=== PATIENT | male | born 1960 | race Caucasian/White ===

== ENCOUNTER 2019-08-08 12:40 | Emergency (ER) | payer BC, SELFPAY ==
--- NOTE | 2019-08-08 12:44 | ED.GENADULT ---
HPI - General Adult General Chief complaint: Skin/Abscess/Foreign Body Stated complaint: pos sinus infection Time Seen by Provider: 08/08/19 12:53 Source: patient Mode of arrival: ambulatory Limitations: no limitations History of Present Illness HPI narrative: 58-year-old male patient presents to the [facility] with complaints of skin infection to the face. Patient states that he had a lump to the right side of his face on the cheek area for the past 2 weeks. Patient states it was very tender to the touch. Patient states that he applied some pressure to it yesterday and states he felt like it popped and noticed that he had some draining to the back the throat is very foul tasting type of drainage. Patient also states that he has had cold symptoms that started yesterday including sneezing, runny nose, stuffy nose but denies any fevers that he is aware of. Patient states that he did get a flu shot this year. Patient denies take anything for his symptoms so far. Related Data Home Medications Medication Instructions Recorded Confirmed Tumeric 500 mg DAILY 05/09/19 08/08/19 alprazolam 0.5 mg PO DAILY PRN 05/09/19 08/08/19 aspirin [Aspirin Low Dose] 81 mg PO DAILY 05/09/19 08/08/19 atorvastatin 80 mg PO DAILY 05/09/19 08/08/19 cholestyramine-aspartame 4 g PO BID 05/09/19 08/08/19 [Cholestyramine Light] hyoscyamine sulfate [Levsin] 0.125 mg PO BID 05/09/19 08/08/19 icosapent ethyl [Vascepa] 2 g PO BID 05/09/19 08/08/19 ivabradine [Corlanor] 5 mg PO BID 05/09/19 08/08/19 metoprolol tartrate 50 mg PO HS 05/09/19 08/08/19 metoprolol tartrate 100 mg AC 05/09/19 08/08/19 km-hf-ZK-vit Z-wdpps-tmy-coQ10 1 cap PO DAILY 05/09/19 08/08/19 [Daily Multivitamin] nitroglycerin [Nitrostat] 0.4 mg SUBLINGUAL Q5M PRN 05/09/19 08/08/19 ranolazine [Ranexa] 1,000 mg PO Q12H 05/09/19 08/08/19 sacubitril-valsartan [Entresto] 1 tablet PO BID 05/09/19 08/08/19 spironolactone 50 mg PO DAILY 05/09/19 08/08/19 temazepam [Restoril] 15 mg PO HS 05/09/19 08/08/19 ticagrelor [Brilinta] 90 mg PO Q12H 05/09/19 08/08/19 vitamin D3-folic acid [Folvite-D] 1 tablet PO DAILY 05/09/19 05/09/19 Allergies Allergy/AdvReac Type Severity Reaction Status Date / Time No Known Allergies Allergy Unverified 06/14/19 09:04 Review of Systems Review of Systems: Narrative: CONSTITUTIONAL: Denies fever, chills, or sweats. EYES: Denies visual changes, redness, or discharge. ENT: Positive rhinorrhea, congestion, denies sore throat, or otalgia. CARDIOVASCULAR: Denies chest pain, palpitations, or edema. RESPIRATORY: Positive mild nonproductive cough, denies dyspnea. GASTROINTESTINAL: Denies abdominal pain, nausea, vomiting, or diarrhea. GENITOURINARY: Denies dysuria or hematuria. SKIN: Denies rash or itching. MUSCULOSKELETAL: Denies back pain, joint pain, or myalgia. NEUROLOGIC: Denies headache, numbness, or weakness. PSYCHIATRIC: Denies anxiety or depression. [facility] Past Medical History Medical History (Updated 08/08/19 @ 13:03 by ERICA Pool) Anxiety Arthritis Cardiac disorder Pacemaker/defibrillator placed Cardiomyopathy Carpal tunnel syndrome Cataracts, bilateral Chronic back pain Congestive heart failure EF 60% on 11/08/2018 COPD (chronic obstructive pulmonary disease) Coronary artery disease 3 stents Emphysema of lung GERD (gastroesophageal reflux disease) Hypercholesterolemia Hypertension Pneumonia 08/2017. Requiring intubation for 8 days Rectal polyp Respiratory abnormalities Benign nodule removed from right lung in 2012 Surgical History Surgical History (Updated 08/08/19 @ 12:50 by ERICA Pool) H/O cardiac catheterization History of orthopedic surgery Right knee ACL repair, 2 right knee scopes, and right rotator cuff repair Hx of tonsillectomy Family History Family History Father Family history of Parkinson's disease Mother Family history of chronic obstructive pulmo
[2019-08-08 12:51] VITALS: BP 148/81; PULSE 66; RESP 20; TEMP 36.2; O2SAT 100
== END 2019-08-08 13:20 | disposition home or self-care (01) ==
PROVIDERS: Emergency Provider Nurse Practitioner Family; PCP Family Medicine
DX: J01.00 Acute maxillary sinusitis, unspecified (principal); F41.9 Anxiety disorder, unspecified; M19.90 Unspecified osteoarthritis, unspecified site; Z95.810 Presence of automatic (implantable) cardiac defibrillator; H26.9 Unspecified cataract; I11.0 Hypertensive heart disease with heart failure; I50.9 Heart failure, unspecified; J44.9 Chronic obstructive pulmonary disease, unspecified; Z95.5 Presence of coronary angioplasty implant and graft; K21.9 Gastro-esophageal reflux disease without esophagitis; E78.00 Pure hypercholesterolemia, unspecified
CPT/HCPCS: 87804; 99212; G0463

== ENCOUNTER 2019-12-21 00:05 | Outpatient (CLI) | payer BC, SELFPAY ==
[2019-12-21 20:58] LABS: SARS-CoV-2 RNA PCR Negative
== END 2019-12-21 00:06 | disposition home or self-care (01) ==
LOC: ANHCOVIDDT 00:05
PROVIDERS: PCP Family Medicine; Visit Provider Orthopaedic Surgery
DX: Z01.812 Encounter for preprocedural laboratory examination (principal); Z11.59 Encounter for screening for other viral diseases
CPT/HCPCS: 87635; C9803; U0003

== ENCOUNTER 2019-12-24 00:52 | Day surgery (SDC) | payer BC, SELFPAY ==
[2019-12-13 08:43] VITALS: BMI 25.8
--- NOTE | 2019-12-24 06:08 | ECG_ITS ---
Measurements Intervals [place] Rate: 56 P: 39 ME: 188 QRS: 20 QRSD: 107 T: 1 QT: 447 QTc: 433 Interpretive Statements ATRIAL SENSE- ELECTRONIC VENTRICULAR PACEMAKER UNDERLYING SINUS BRADYCARDIA NO FURTHER INTERPRETATION IS POSSIBLE BORDERLINE ECG Electronically Signed On 12-24-2019 9:07:16 CDT by Danish Jacinto D.O.
--- NOTE | 2019-12-24 07:04 | WPDHPUPDATE1 ---
History and Physical Update Update Date/Time: 12/24/19 07:04 History and Physical has been reviewed, including an updated exam of the patient- see below. There are NO changes in the patient's condition. Risks, benefits, and alternatives have been discussed and questions answered. Patient agrees to proceed with procedure. Covid test negative. Intake Visit Reasons: Hand pain Disease Intervention Specialist Required: No Accompanied by: Self / Same As Patient Is patient in pain?: Yes Allergies/Adverse Reactions No Known Allergies Allergy (Verified 12/05/19 11:49) Do you need a note to return to daycare/school/sports/work: No Preferred pharmacy verified?: Yes Preferred laboratory: Other Smoking risk assessment performed?: Yes Smoking Status: Never smoker BMI Screening Performed?: Yes Body Mass Index: 25.8 HPI Hand/Wrist Pain Rt hand pain/numbness. Zoom video appointment completed Involved hand: right Involved wrist: right Dominant hand: right Onset: gradual Location of pain: palmar hand Character: throbbing, burning, numbing and tingling Associated symptoms: Reports swelling and weakness; Denies fever(s), erythema or warmth Exacerbated by: activities of daily living, writing, manipulative tasks, motion, lifting and prolonged activities Relieved by: rest Swelling: No History of occupational/recreational activity with repetitive movement: No History of prior hand/wrist injury: No Review of Systems Const Reports no additional complaints Eyes Reports loss of vision ENT Reports no additional complaints Card Reports no additional complaints Resp Reports no additional complaints GI Reports no additional complaints Musc Reports no additional complaints Skin/Breast Denies acne Neuro Reports no additional complaints Psych Reports no additional complaints Endo Reports no additional complaints Brandon/Lymph Reports no additional complaints Aller/Immun Reports no additional complaints Exam Exam Const Constitutional General: cooperative, healthy appearing, no acute distress, well developed and alert; No confusion Orientation/consciousness: No confusion HENMT Head: normal to inspection, normocephalic and atraumatic Eyes Conjunctivae: Yes conjunctivae normal Sclera: sclerae normal Neck Neck: Yes supple and No tender Chest Chest palpation & inspection: normal inspection of the chest Resp Effort & Inspection: normal respiratory effort and no audible wheezes Cardio Rate: Yes regular rate Rhythm: regular rhythm General Exam: Yes deferred Skin General skin exam: no rashes or lesions noted Neuro General: No confusion Motor exam (neuro): Yes Normal motor muscle tone present throughout Sensory Exam: Sensory deficit (Neuro) (decreased sensation to light touch thumb, index, middle and radial ring ashley) and Upper extremity sensory exam abnormal Deep tendon reflexes (DTR's): Right triceps reflex intensity grade: 2+, Left triceps reflex intensity grade: 2+, Rt Biceps (C5, C6): 2+, Left biceps reflex intensity grade: 2+, Right brachioradialis reflex intensity grade: 2+ and Left brachioradialis reflex intensity grade: 2+ Extrem General: Yes capillary refill normal Right upper extremity: normal to inspection, full ROM, normal capillary refill and wrist Left upper extremity: normal to inspection and wrist Right lower extremity: normal to inspection and hip/thigh Left lower extremity: hip/thigh and ankle (no calf tenderness) Psych Affect: Yes normal affect Assessment & Plan (1) Pain of hand: Code(s): M79.643 - Pain in unspecified hand (2) Pain in wrist: Code(s): M25.539 - Pain in unspecified wrist (3) Carpal tunnel syndrome of right wrist: Code(s): G56.01 - Carpal tunnel syndrome, right upper limb Category: Medical Plan - Benjamin Mendez MD: Evaluation for chief complaint continued bilateral wrist pain and hand numbness. History, physical exam and radiographs reviewed with the patient. previous nerve conduction study
[2019-12-24 07:45] VITALS: BP 126/77; PULSE 58; RESP 18; TEMP 36.2; O2SAT 100
[2019-12-24] MEDS: LACTATED RINGERS 1,000 ML 30 ML IV CONT (07:45)
[2019-12-24] MEDS: IBUPROFEN IV 800 MG/200 ML 800 MG/200 ML BAG 400 MG IVPB (07:45)
--- NOTE | 2019-12-24 07:58 | WPDANESEPPF ---
Anes - Initial Pre Proc Eval Procedure: Operation Date: 12/24/19 08:30 Proposed Procedures p Right Carpal Tunnel Release - Benjamin Mendez MD Date/Time: 12/24/19 07:58 Surgeon: Benjamin Mendez MD Pre Op Diagnosis: right carpal tunnel syndrome Patient Data Age: 59 Gender: M Height: 5 ft 10 in Weight: 81.65 kg Allergies Allergy/AdvReac Type Severity Reaction Status Date / Time No Known Allergies Allergy Verified 12/13/19 08:44 Home Medications Medication Instructions Recorded Confirmed Type Tumeric 500 mg DAILY 05/09/19 12/13/19 History alprazolam 0.5 mg PO DAILY PRN 05/09/19 12/13/19 History aspirin [Aspirin Low Dose] 81 mg PO DAILY 05/09/19 12/13/19 History atorvastatin 80 mg PO DAILY 05/09/19 12/13/19 History hyoscyamine sulfate [Levsin] 0.125 mg PO BID 05/09/19 12/13/19 History icosapent ethyl [Vascepa] 2 g PO BID 05/09/19 12/13/19 History ivabradine [Corlanor] 5 mg PO BID 05/09/19 12/13/19 History metoprolol tartrate 50 mg PO HS 05/09/19 12/13/19 History metoprolol tartrate 100 mg PO DAILY 05/09/19 12/13/19 History mf-mv-KV-vit J-seacw-xbm-coQ10 1 cap PO DAILY 05/09/19 12/13/19 History [Daily Multivitamin] nitroglycerin [Nitrostat] 0.4 mg SUBLINGUAL Q5M PRN 05/09/19 12/13/19 History ranolazine [Ranexa] 1,000 mg PO Q12H 05/09/19 12/13/19 History sacubitril-valsartan [Entresto] 1 tablet PO BID 05/09/19 12/13/19 History spironolactone 100 mg PO DAILY 05/09/19 12/13/19 History temazepam [Restoril] 15 mg PO HS PRN 05/09/19 12/13/19 History ticagrelor [Brilinta] 90 mg PO Q12H 05/09/19 12/13/19 History loperamide 2 mg capsule 2 mg PO Q2-4H PRN 08/22/19 12/13/19 History ascorbic acid (vitamin C) [Vitamin 500 mg PO BID 12/13/19 12/13/19 History C] folic acid 0.8 mg PO DAILY 12/13/19 12/13/19 History vit C,Z-Pz-yiesu-lutein-zeaxan 1 tablet PO BID 12/13/19 12/13/19 History [PreserVision AREDS-2] Patient hx anesthesia problems: none Family hx anesthesia problems: none PMFSH Social History Social History Smoking status: Never smoker Alcohol intake: current Anes - Eval Final PreProcedure Day of Procedure 12/24/19 07:58 Patient weight: overweight Heart: regular rate and rhythm Lungs: clear to auscultation Airway: Mallampati scale class II Neurological: alert and oriented Last oral intake: >/= 8 hours ASA classification: III Emergent: no Anesthetic plan: proceed Anesthesia type and monitoring: general (may do LMA) GIVS and standard monitoring Informed Consent: The patient's anesthetic plan and its attendant risks and benefits were discussed with the patient/family/POA. Questions were solicited and answers provided to the satisfaction of the patient/family/POA.
[2019-12-24] MEDS: ceFAZolin 2 GM/D5W 50 ML 2 GM/50 ML BAG IVPB (08:32)
--- NOTE | 2019-12-24 08:34 | PM.PROC ---
Procedure Note - Detailed Date of procedure: 12/24/19 Pre-op diagnosis: right carpal tunnel syndrome Post-op diagnosis: same Procedure performed: Right carpal tunnel release Description of procedure: Preoperative Diagnosis: Right Carpal Tunnel Syndrome (G56.02) Postoperative Diagnosis: Same Procedure: Right open carpal tunnel release (04225) Surgeon: Andrea Assist: Stripper And Opaquer Apprentice Anesthesia: MAC, local Complications: None EBL: Minimal Operative Indications: The patient has history, exam findings, and electrodiagnostic findings consistent with carpal tunnel syndrome. Conservative treatment with bracing/ splinting, activity modifications, medication, ergonomics, injections has failed. Symptoms are daily and affect ability to use hand. The patient desires operative treatment. Procedure: After informed consent was given, the operative extremity was marked in the preoperative holding area. Intravenous antibiotics were given. The patient was taken to the operating room and underwent conscious sedation by the anesthesia team. A time-out was performed confirming patient, procedure, and operative site. Local infiltrate at the carpal tunnel was done with 0.5% marcaine. Prepping and draping was done using chloraprep skin solution with usual surgical sterile technique. Anatomic landmarks marked on skin. Hand was exsanguinated and arm tourniquet inflated to 225mmHg. Incision was made with #15 blade knife in skin crease on volar palm. Hemostasis was achieved with electrocautery. Careful dissection was carried down to the transverse carpal ligament. Retractors were placed. Ligament overlying median nerve was incised in line with skin incision using [place] blade. Proximal and distal release was done with metzenbaum scissors under direct visualization. Mosquito clamp was placed deep to ligament to protect nerve during release. The nerve was inspected and noted to be intact with mild flattening. Tendons had good excursion. The tourniquet was then released and pressure held. Bleeding points were coagulated with bovie cautery. The wound was thoroughly irrigated with antibiotic solution. The skin was closed with 4-0 nylon interrupted suture. A sterile dressing was applied. Good capillary refill in the fingers and thumb was noted. The patient was transported to the recovery room in stable condition. All sponge, needle, instrument counts were correct at the end of the case. Anesthesia: MAC Surgeon: Benjamin Mendez MD Film Maker: 1st staff physical therapy assistant Estimated blood loss (mL): 5 Tourniquet time (min): 6 Drains: No Packing: No Pathology: none sent Complications: None Condition: stable Disposition: PACU
[2019-12-24] MEDS: LIDOCAINE HCL 2% LOCAL INJ 20 ML VIAL INFILTRATE (08:55)
[2019-12-24 09:06] VITALS: BP 110/67; PULSE 56; RESP 14; O2SAT 95
[2019-12-24 09:35] VITALS: BP 143/70; PULSE 57
[2019-12-24 10:05] VITALS: BP 160/82; PULSE 62
== END 2019-12-24 10:25 | disposition home or self-care (01) ==
PROVIDERS: PCP Family Medicine; Visit Provider Orthopaedic Surgery
PROC: (CPT 64721; principal; 2019-12-24 08:30)
DX: G56.01 Carpal tunnel syndrome, right upper limb (principal); I42.9 Cardiomyopathy, unspecified; I50.9 Heart failure, unspecified; I11.0 Hypertensive heart disease with heart failure; J44.9 Chronic obstructive pulmonary disease, unspecified; F41.9 Anxiety disorder, unspecified; K21.9 Gastro-esophageal reflux disease without esophagitis; E78.00 Pure hypercholesterolemia, unspecified; Z79.82 Long term (current) use of aspirin; Z95.5 Presence of coronary angioplasty implant and graft; Z95.810 Presence of automatic (implantable) cardiac defibrillator
CPT/HCPCS: 64721; 93005; J0690; J1100; J1741; J2250; J2405; J2704; J3010; J7120

== ENCOUNTER 2020-04-14 13:59 | Outpatient (CLI) | payer BC, SELFPAY ==
--- NOTE | ~2020-04-14 | US_ITS ---
EXAMINATION: US art doppler w press UE BI DATE: 04/14/2020 15:39 CDT INDICATION: Arterial insufficiency. Peripheral vascular disease. TECHNIQUE: Segmental pressures and plethysmographic and Doppler waveforms of the upper extremity clinton sahara were obtained. COMPARISON: None. FINDINGS: Right and left brachial artery pressures of 145 mm Hg and 143 mm Hg, respectively, are concordant (no rmal difference <= 30 mmHg). The right finger:brachial systolic pressure ratio is 0.86 (normal > 0.8) . Segmental pressure gradients are normal. The left finger:brachial systolic pressure ratio is 1.04. Segmental pressure gradients are normal. IMPRESSION: 1. Normal upper extremity Doppler study. Reviewed, dictated and finalized at location B.
== END 2020-04-14 14:00 | disposition home or self-care (01) ==
PROVIDERS: PCP Family Medicine; Visit Provider Orthopaedic Surgery
DX: I73.9 Peripheral vascular disease, unspecified (principal); I77.1 Stricture of artery
CPT/HCPCS: 93923

== ENCOUNTER 2020-05-21 06:42 | Outpatient (NON) | payer BC, SELFPAY ==
[2020-05-24 01:47] LABS: SARS-CoV-2 RNA PCR Negative
== END 2020-05-21 06:43 ==
LOC: ANHCOVIDDT 06:57
PROVIDERS: PCP Family Medicine; Visit Provider Family Medicine
DX: R68.89 Other general symptoms and signs (principal); Z20.828 Contact with and (suspected) exposure to other viral communicable diseases
CPT/HCPCS: 87635; C9803; U0003

== ENCOUNTER 2020-12-30 13:53 | Outpatient (CLI) | payer BC, SELFPAY ==
--- NOTE | ~2020-12-30 | US_ITS ---
US arterial ankle brachial ind INDICATION: Peripheral vascular disease. Foot pain. TECHNIQUE: Segmental pressures and plethysmographic and Doppler waveforms of the brachial and lower e xtremity arteries were obtained. COMPARISON: None. FINDINGS: Right and left brachial artery pressures of 183 mm Hg and 175 mm Hg, respectively, are concordant (no rmal difference <= 30 mmHg). The right ankle-brachial index (JACOB) is 1.01 (normal >= 0.9-1.0). The right great toe-brachial index (TBI) is 0.68 (normal >= 0.60). The left JACOB is 0.64. The left TBI is 0.43. IMPRESSION: 1. Diminished left ankle and toe brachial indices, consistent with mild-moderate peripheral arterial disease. Reviewed, dictated and finalized at location A. IMPRESSION: 1. Diminished left ankle and toe brachial indices, consistent with mild-moderat e peripheral arterial disease.
== END 2020-12-30 13:54 | disposition home or self-care (01) ==
LOC: ANHIMG 14:01
PROVIDERS: PCP Internal Medicine; Visit Provider Internal Medicine
DX: I73.9 Peripheral vascular disease, unspecified (principal)
CPT/HCPCS: 93922

== ENCOUNTER 2021-06-04 00:32 | Day surgery (SDC) | payer BC, SELFPAY ==
[2021-05-28 13:11] VITALS: BMI 25.9
--- NOTE | 2021-05-28 13:24 | PC.NURSE ---
Report to the Outpatient Waiting Room, entrance under the green pavilion located off [facility], at time _0630_ on date _06/04/21__. OR Time: _0830 AM___. - You and your visitor will be asked a series of questions to screen for COVID 19 for your protection. - A mask is required within the hospital. - Only one visitor is allowed at this time. Patient visitors will be guided where to wait when not with patient. Preoperative COVID Testing Requirements: No COVID Test needed if: (proof is required; if not received patient will have Rapid Test prior to entry) - Patient has received COVID Vaccine at least 14 days prior to procedure date or - Patient has positive COVID test result within last 90 days of surgery date. COVID Test needed if above criteria is not met If not COVID vaccinated a COVID test must be conducted within 72 hours of surgery and patient is asked to isolate self from time of testing until procedure. You will go to the [facility] for your COVID testing. The [facility] is located at the corner of [address] [facility]. You will only be called if COVID results are positive and your surgeon may reschedule your elective surgery date. Patients may have clear liquids (water, carbonated beverages, clear teas, apple juice) until 3 hours prior to surgery (0530 AM) with a maximum of 20 ounces. - No food from midnight until time of surgery - Infants may have breast milk until 4 hours before surgery, infant formula 6 hours prior to surgery. - Children will be allowed to drink immediately following surgery. If applicable, please bring a bottle or sippy cup to assist with drinking. Juice, water, soda, and popsicles are readily available. For infants on formula, please bring formula the day of surgery. Pacifiers are allowed. Take the following medications with a SIP of water the morning of surgery: __ASPIRIN & BRILINTA (PER DR. SNOW), ALPRAZOLAM, METOPROLOL, NITROGLYCERIN IF NEEDED (PER ANESTHESIA)____ Medications to discontinue per physician __ALL VITAMINS & SUPPLEMENTS 3 DAYS PRIOR TO SURGERY PER ANESTHESIA____ Date to take last dose__05/31/21 Please no make-up, nail georgian, hairspray, perfume, deodorant, or body powder the day of surgery. No jewelry (including any body piercings) or valuables the day of surgery, leave them at home. Please take a shower or bath the night before, or the morning of, surgery with an antibacterial soap. Wear comfortable, loose fitting clothing. Children are encouraged to wear pajamas. - Jewelry must be removed prior to entering the operating room. Rings and piercings that are not removed may be cut off. - The hospital will not accept responsibility for valuables. - Please leave all valuables, including medications, at home the day of surgery. If you are going home after surgery, a licensed hook up driver must drive you home. - NO public transportation without another adult. - We recommend that an adult stay with you for 24 hours following discharge. - We also recommend that you do not drive, make important decision, drink alcoholic beverages, or take any drugs that were not prescribed by your health care provider for at least 24 hours after your discharge time. For Pediatric surgeries, we recommend two adults accompany the child home (only one inside the building at this time). Follow any additional instructions given to you from your surgeon. Telephone instructions given to ____PT and asked if any additional questions and then verbalized understanding. Patient advised to call surgeon office or pre surgery nurse liaison [phone] if any additional questions.
--- NOTE | 2021-06-03 13:32 | WPDANESEPPF ---
Anes - Initial Pre Proc Eval Procedure: Operation Date: 06/04/21 08:30 Proposed Procedures p Left Open Carpal Tunnel Release - Dimitrios Viveros MD Date/Time: 06/03/21 13:32 Surgeon: Dimitrios Viveros MD Pre Op Diagnosis: left carpal tunnel syndrome Patient Data Age: 60 Gender: M Height: 1.78 m Weight: 81.81 kg Allergies Allergy/AdvReac Type Severity Reaction Status Date / Time No Known Allergies Allergy Verified 06/04/21 07:26 Home Medications Medication Instructions Recorded Confirmed Type Daily Multivitamin 1 cap PO DAILY 05/09/19 06/04/21 History Tumeric 500 mg DAILY 05/09/19 06/04/21 History PreserVision AREDS-2 1 tablet PO BID 12/13/19 06/04/21 History ascorbic acid (vitamin C) [Vitamin 500 mg PO BID 12/13/19 06/04/21 History C] folic acid 0.8 mg PO DAILY 12/13/19 06/04/21 History eplerenone 25 mg tablet 25 mg PO DAILY 06/18/20 06/04/21 History icosapent ethyl 1 gram capsule 2 g PO BID #180 cap 07/08/20 06/04/21 Rx ivabradine 5 mg tablet 5 mg PO BID #180 tablet 07/08/20 06/04/21 Rx metoprolol tartrate 50 mg tablet 50 mg PO HS #90 tablet 07/08/20 06/04/21 Rx nitroglycerin 0.4 mg sublingual 0.4 mg SUBLINGUAL Q5M PRN #20 07/08/20 05/28/21 Rx tablet tablet sacubitril 97 mg-valsartan 103 mg 1 tablet PO BID #180 tablet 07/08/20 06/04/21 Rx tablet ticagrelor 90 mg tablet 90 mg PO Q12H #90 tablet 07/08/20 06/04/21 Rx ranolazine 1,000 mg 1,000 mg PO Q12H #180 tablet 07/15/20 06/04/21 Rx tablet,extended release,12 hr aspirin 81 mg tablet,delayed 81 mg PO DAILY #90 tablet 07/29/20 06/04/21 Rx release coenzyme F38-bjgaasl E 100 mg-100 1 cap PO DAILY 12/25/20 06/04/21 History unit capsule hyoscyamine sulfate 0.125 mg tablet 0.125 mg PO BID #60 tablet 02/09/21 06/04/21 Rx alprazolam 0.5 mg tablet 0.5 mg PO DAILY PRN #90 tablet 05/18/21 06/04/21 Rx temazepam 15 mg capsule 15 mg PO HS PRN #90 cap 05/18/21 06/04/21 Rx atorvastatin 80 mg HS 05/28/21 06/04/21 History efinaconazole [Jublia] 1 applic TOPICAL DAILY 05/28/21 06/04/21 History metoprolol tartrate 100 mg PO QAM 05/28/21 06/04/21 History Patient hx anesthesia problems: none Family hx anesthesia problems: none Results Review: All pre-operative results and documents have been reviewed as part of the pre-operative evaluation. [facility] Past Medical History Medical History (Updated 02/09/21 @ 15:50 by Kenny Woods MD) Anxiety Arthritis Arthritis of hand, degenerative Cardiac disorder Pacemaker/defibrillator placed Cardiomyopathy Carpal tunnel syndrome Carpal tunnel syndrome of left wrist Carpal tunnel syndrome of right wrist Cataracts, bilateral Chronic back pain Congestive heart failure EF 60% on 11/08/2018 COPD (chronic obstructive pulmonary disease) Coronary artery disease 3 stents Emphysema of lung GERD (gastroesophageal reflux disease) Hypercholesterolemia Hypertension Pneumonia 08/2017. Requiring intubation for 8 days Rectal polyp Respiratory abnormalities Benign nodule removed from right lung in 2012 Trigger finger (acquired) Surgical History Surgical History H/O cardiac catheterization History of orthopedic surgery Right knee ACL repair, 2 right knee scopes, and right rotator cuff repair Hx of tonsillectomy Family History Family History Father Family history of Parkinson's disease Mother Family history of chronic obstructive pulmonary disease Family history of diabetes mellitus in first degree relative Family history of heart disease in male family member before age 55 Other Diabetes mellitus Family history of cardiovascular disease Hypertension Social History Social History (Updated 12/25/20 @ 13:55 by Zeinab Malave [facility]) Smoking packs per day: 0.5 Smoking cigarettes per day: 10.0 Years smoked: 46 Smoking pack-years: 23.00 Smoking status: Current every day smoker Additional s
[2021-06-04 06:54] VITALS: BP 131/72; PULSE 63; RESP 16; TEMP 36.2; O2SAT 100
--- NOTE | 2021-06-04 07:16 | WPDHPUPDATE1 ---
History and Physical Update Update Date/Time: 06/04/21 07:16 History and Physical has been reviewed, including an updated exam of the patient. There are NO changes in the patient's condition. Risks, benefits, and alternatives have been discussed and questions answered. Patient agrees to proceed with procedure.
--- NOTE | 2021-06-04 07:28 | WPDHPUPDATE1 ---
History and Physical Update Update Date/Time: 06/04/21 07:28 History and Physical has been reviewed, including an updated exam of the patient. There are NO changes in the patient's condition. Risks, benefits, and alternatives have been discussed and questions answered. Patient agrees to proceed with procedure. The patient has requested that we release his left middle trigger finger today. It was last injected in December. We will comply with his request.
[2021-06-04] MEDS: LACTATED RINGERS 1,000 ML 30 ML IV CONT (07:35)
[2021-06-04] MEDS: LIDO 1%/EPINEPHRINE 1:100,000 50 ML VIAL INFILTRATE (08:40)
[2021-06-04 08:56] VITALS: BP 101/62; PULSE 58; RESP 20
--- NOTE | 2021-06-04 09:02 | P.OP_ITS ---
Procedure Note - Detailed Date of Procedure 06/04/21 Pre-op Diagnosis Left carpal tunnel syndrome. Left middle trigger finger. Post-op Diagnosis same Procedure Performed Left open carpal tunnel release. Left middle trigger finger release Surgeon Dimitrios Viveros MD Cleaner Operator [facility]est[facility] Description of Procedure The left carpal tunnel and the left middle A1 marco was marked in the holding area. The patient was taken to the operating room where he was placed supine on the operating table. A time-out was held and confirmed. The extremity was prepped and draped in usual fashion as he was given IV sedation. The 2 sites were marked again and locally infiltrated with 1% lidocaine with epinephrine. The tourniquet was inflated to 250 mmHg. The incision was made over the carpal canal. Dissection was carried bluntly through the subcutaneous tissue to the palmar aponeurosis. This and the transverse carpal retinaculum were incised opening the canal. Under 3 point retraction the ligament was divided distally and proximally to completely release it. There was no unusual anatomy noted. That wound was closed with interrupted 4-0 nylon suture. Attention was turned to the left middle trigger finger site a longitudinal incision was made at this location and dissection was carried bluntly to the flexor tendon sheath. The A1 marco was identified and lysed throughout its length. About 3 mm of the next adjacent marco was also incised. Patient was not responsive. The 2 tendons were pulled up out of the wound on her Ragnell retractor and there seemed to be no catching. That wound was closed with interrupted 4-0 nylon suture. The usual bandage was applied the tourniquet was released and he is discharge instructions in wound care and follow-up. Has a prescription for hydrocodone 5/325 7. Estimated Blood Loss 2 Drains No Packing No Pathology none sent Complications No immediate complications Condition stable Disposition same day
[2021-06-04 09:20] VITALS: BP 125/77; PULSE 58; RESP 20
[2021-06-04 09:50] VITALS: BP 147/93; PULSE 64; RESP 20
[2021-06-04 10:10] VITALS: BP 160/88; PULSE 63; RESP 20
== END 2021-06-04 10:20 | disposition home or self-care (01) ==
PROVIDERS: PCP Internal Medicine; Visit Provider Plastic Surgery
PROC: (CPT 64721; principal; 2021-06-04 08:30)
DX: G56.02 Carpal tunnel syndrome, left upper limb (principal); M65.332 Trigger finger, left middle finger; I42.9 Cardiomyopathy, unspecified; I11.0 Hypertensive heart disease with heart failure; I50.9 Heart failure, unspecified; I25.10 Atherosclerotic heart disease of native coronary artery without angina pectoris; E78.00 Pure hypercholesterolemia, unspecified; J44.9 Chronic obstructive pulmonary disease, unspecified; K21.9 Gastro-esophageal reflux disease without esophagitis; F41.9 Anxiety disorder, unspecified; H26.9 Unspecified cataract; Z95.5 Presence of coronary angioplasty implant and graft; F17.210 Nicotine dependence, cigarettes, uncomplicated; Z79.01 Long term (current) use of anticoagulants; Z79.82 Long term (current) use of aspirin; Z95.810 Presence of automatic (implantable) cardiac defibrillator
CPT/HCPCS: 64721; 26055; A9270; J2001; J2250; J2405; J2704; J3010; J7120

== ENCOUNTER 2021-09-23 09:18 | Outpatient (CLI) | payer BC, SELFPAY ==
--- NOTE | ~2021-09-23 | US_ITS ---
EXAMINATION: US carotid duplex BI DATE: 09/23/2021 10:03 INDICATION: Bilateral carotid bruits. TECHNIQUE: Grayscale, color Doppler, and pulsed Doppler images of the cervical carotid arteries were obtained. The degree of vessel stenosis is placed in one of the following categories: normal, <50%, 5 0-69%, >=70% but less than near-occlusion, near-occlusion, or total occlusion. Note that percent sten osis relative to normal distal artery lumen diameter is indirectly measured from velocity measurement s as described by Tj, et al. Radiology 2003; 229:340-346. COMPARISON: None. FINDINGS: RIGHT: The right common carotid artery (CCA) peak systolic velocity (PSV) is 94 cm/s. The right internal car otid artery (ICA) PSV is 83 cm/s. The right ICA end-diastolic velocity (EDV) is 23 cm/s. The right IC A/CCA PSV ratio is 0.9. Grayscale and color Doppler images yield an estimate of <50% diameter reducti on from plaque in the ICA. There is antegrade flow in the right vertebral artery. LEFT: The left CCA PSV is 146 cm/s. The left ICA PSV is 98 cm/s. The left ICA EDV is 19 cm/s. The left ICA/ CCA PSV ratio is 0.7. Grayscale and color Doppler images yield an estimate of <50% diameter reduction from plaque in the ICA. There is antegrade flow in the left vertebral artery. IMPRESSION: 1. <50% stenosis in the right internal carotid artery. 2. <50% stenosis in the left internal carotid artery. Reviewed, dictated and finalized at location A.
== END 2021-09-23 09:19 | disposition home or self-care (01) ==
LOC: ANHIMG 09:21
PROVIDERS: Visit Provider Internal Medicine Cardiovascular Disease
DX: R09.89 Other specified symptoms and signs involving the circulatory and respiratory systems (principal); I65.23 Occlusion and stenosis of bilateral carotid arteries
CPT/HCPCS: 93880

== ENCOUNTER 2021-12-16 09:44 | Outpatient (CLI) | payer MEDICARE, BC, SELFPAY ==
--- NOTE | ~2021-12-16 | US_ITS ---
EXAMINATION: US aorta [facility] DATE: 12/16/2021 10:12 INDICATION: Abdominal aortic aneurysm screening with risk factors of hypercholesterolemia, hypertensi on and smoking. TECHNIQUE: Grayscale, color Doppler, and pulsed Doppler images of the aorta and common iliac arteries were obtained. COMPARISON: None. FINDINGS: The proximal aorta measures 2.5 cm. The mid aorta measures 2.0 cm. The distal aorta measures 1.7 cm. The right common iliac artery measures 8 mm. The left common iliac artery measures 9 mm. IMPRESSION: 1. Normal caliber abdominal aorta. Reviewed, dictated and finalized at location B.
== END 2021-12-16 09:45 | disposition home or self-care (01) ==
PROVIDERS: PCP Family Medicine Sports Medicine; Visit Provider Internal Medicine Cardiovascular Disease
DX: Z13.6 Encounter for screening for cardiovascular disorders (principal); Z72.0 Tobacco use
CPT/HCPCS: 76706

== ENCOUNTER 2022-01-29 01:27 | Day surgery (SDC) | payer BC, MEDICARE, SELFPAY ==
[2022-01-28 15:28] VITALS: BMI 25.9
[2022-01-29] VITALS (15 sets, daily range): BP systolic 116–183; BP diastolic 71–95; PULSE 59–67; RESP 12–18; TEMP 36.6; O2SAT 97–100; BMI 25.2
--- NOTE | 2022-01-29 | ECHO_ITS ---
Patient Info Name: Jcarlos Michaud Age: 61 years : 1960 Gender: Male Ht: 70 in Wt: 180 lbs BSA: 2.02 m2 HR: 78 bpm BP: 160 / 81 mmHg Heart Rhythm: Sinus Rhythm Technical Quality: Excellent Exam Date: 01/29/2022 11:36 AM Exam Location: [facility] Exam Room: [facility] Patient Status: Outpatient Admit Date: 01/29/2022 Staff Ordering Physician: Doron Carlson MD Panel Raiser Operator: Tameka Samuel RDCS Attending Provider: Doron Carlson MD Referring Physician: Robyn BONNER; Exam Type: CA echo transesophageal Study Info Indications - AORTIC VALVE STENOSIS Complete two-dimensional, color flow and Doppler transesophageal study is performed. Summary 1. Left ventricular chamber dimension is normal. 2. Grossly normal left ventricular systolic function. 3. Left atrial chamber dimension is moderately enlarged. 4. Sclerotic aortic valve which is moderately stenotic. 5. Aortic valve area by planimetry approximately 1.2 cm2. Left Ventricle Left ventricular chamber dimension is normal. Grossly normal left ventricular systolic function. Right Ventricle Right ventricular chamber dimension is normal. Linear artifact in right ventricle suggestive of catheter(s), pacemaker lead(s), or ICD lead(s). Left Atria Left atrial chamber dimension is moderately enlarged. Right Atria Right atrial chamber dimension is mildly enlarged. Aortic Valve The aortic valve is trileaflet. There is severe aortic valve sclerosis. There is moderate aortic valve stenosis. There is no aortic valve regurgitation. Pulmonic Valve The pulmonic valve is not well visualized. Mitral Valve The mitral valve has normal leaflets. There is trace mitral valve regurgitation. Tricuspid Valve The tricuspid valve leaflets are normal. Pericardium/Pleural The pericardium appears normal. Inferior Vena Cava Not well visualized inferior vena cava with Empty collapse upon inspiration consistent with Empty right atrial pressure, Empty. Aorta The aortic root size at the sinus of Valsalva is normal. Aortic Valve Name Value Normal AV 2D/MM AV Area (Planimetry) 1.3 cm2 Report Signatures
--- NOTE | 2022-01-29 12:46 | SUR.OPER ---
dr matos at bedside discussing case with patient
--- NOTE | 2022-01-29 13:06 | WPDMODSED ---
Moderate Sedation Note-Pt Data Patient Data Diagnosis: Aortic valve stenosis Present Complaint: Exertional dyspnea Procedure to be performed/Plan: Transesophageal echo Allergies Allergy/AdvReac Type Severity Reaction Status Date / Time No Known Allergies Allergy Verified 01/29/22 10:44 Home Medications Medication Instructions Recorded Confirmed Type [id number] 200 mcg-vit K 100 1 cap PO DAILY 05/09/19 01/28/22 History mcg-lycop 500 [id number] capsule (Daily Multivitamin) folic acid 0.8 mg capsule 0.8 mg PO DAILY 12/13/19 01/28/22 History vit C 250 mg-vit E 90 mg-zinc 40 1 tablet PO BID 12/13/19 01/28/22 History mg-copper 1 md-njxawr-sccosc capsule (PreserVision AREDS-2) eplerenone 25 mg tablet 25 mg PO DAILY 06/18/20 01/28/22 History icosapent ethyl 1 gram capsule 2 g PO BID #180 caps 07/08/20 01/28/22 Rx (Vascepa) ivabradine 5 mg tablet (Corlanor) 5 mg PO BID #180 tabs 07/08/20 01/28/22 Rx metoprolol tartrate 50 mg tablet 50 mg PO HS #90 tabs 07/08/20 01/28/22 Rx sacubitril 97 mg-valsartan 103 mg 1 tablet PO BID #180 tabs 07/08/20 01/28/22 Rx tablet (Entresto) hyoscyamine sulfate 0.125 mg 0.125 mg PO BID #60 tabs 02/09/21 01/28/22 Rx tablet (Levsin) metoprolol tartrate 100 mg tablet 100 mg PO QAM 05/28/21 01/28/22 History temazepam 15 mg capsule (Restoril) 15 mg PO HS PRN Insomnia #90 caps 08/21/21 01/28/22 Rx aspirin 81 mg tablet,delayed 81 mg PO DAILY #90 tabs 08/24/21 01/28/22 Rx release (Mohit Low Dose Aspirin) atorvastatin 80 mg tablet 80 mg PO DAILY #90 tabs 08/24/21 01/28/22 Rx nitroglycerin 0.4 mg sublingual 0.4 mg sublingual Q5M PRN Chest 08/24/21 01/28/22 Rx tablet (Nitrostat) Pain #20 tabs ranolazine 1,000 mg 1,000 mg PO Q12H #180 tabs 08/26/21 01/28/22 Rx tablet,extended release,12 hr (Ranexa) alprazolam 0.5 mg tablet 0.25 mg PO DAILY PRN Anxiety 01/28/22 01/28/22 History coenzyme Q10 100 mg capsule 100 mg PO DAILY 01/28/22 01/28/22 History (CoQ-10) ticagrelor 60 mg tablet 60 mg PO Q12H 01/28/22 01/28/22 History turmeric root extract 500 mg 500 mg PO DAILY 01/28/22 01/28/22 History capsule Sedation/Anesthesia: No previous sedation/anesthesia problems (including family history). [facility] Past Medical History Medical History (Updated 07/15/21 @ 13:25 by Jose Reyes APRN) Anxiety Arthritis Arthritis of hand, degenerative Cardiac disorder Pacemaker/defibrillator placed Cardiomyopathy Carpal tunnel syndrome Carpal tunnel syndrome of left wrist Carpal tunnel syndrome of right wrist Cataracts, bilateral Chronic back pain Congestive heart failure EF 60% on 11/08/2018 COPD (chronic obstructive pulmonary disease) Coronary artery disease 3 stents Emphysema of lung GERD (gastroesophageal reflux disease) Hypercholesterolemia Hypertension Pneumonia 08/2017. Requiring intubation for 8 days Rectal polyp Respiratory abnormalities Benign nodule removed from right lung in 2012 Trigger finger (acquired) Surgical History Surgical History H/O cardiac catheterization History of orthopedic surgery Right knee ACL repair, 2 right knee scopes, and right rotator cuff repair Hx of tonsillectomy Family History Family History Father Family history of Parkinson's disease Mother Family history of chronic obstructive pulmonary disease Family history of diabetes mellitus in first degree relative Family history of heart disease in male family member before age 55 Other Diabetes mellitus Family history of cardiovascular disease Hypertension Social History Social History (Updated 12/25/20 @ 13:55 by Zeinab Malave [facility]) Smoking packs per day: 0.5 Smoking cigarettes per day: 10.0 Years smoked: 48 Smoking pack-years: 24.00 Smoking status: Current every day smoker Tobacco type: cigarettes Additional smoking assessment co
--- NOTE | 2022-01-29 13:08 | WPDCARDPROC ---
Cardiac Cath Procedure Note Date of procedure:: 01/29/22 Performing physician:: Doron Carlson MD Indication:: Evaluation of aortic valve disease Brief clinical history:: This is a 61-year-old patient with history of coronary artery disease as well as aortic stenosis. He is been found to have significant aortic stenosis by echo Doppler. Further evaluation of this with KASSANDRA has been recommended following office appointment. Procedure Procedure performed:: Transesophageal echocardiogram with planimetry of aortic valve area Sedation/Medication given:: Fentanyl 50 mg Versed 6 mg Case start time 12 50 p.m. Case end time 1:02 p.m. Sedation provided by Mechelle Narayanan RN, trained observer Estimated blood loss:: No blood loss Procedure note:: Patient was brought to the cardiac catheterization lab holding area in the postabsorptive state placed in the supine position. He received viscous lidocaine swish and swallow and then or pharyngeal benzocaine spray. Following this he was sedated with Versed and fentanyl as detailed above. The bite block was placed in position his dentures were removed. Esophageal ECHO was then carried out easily and without complication. Following this the KASSANDRA probe was withdrawn the patient is recovering from sedation procedure was uneventful and well tolerated Findings:: The left atrium is moderately dilated. The mitral valve leaflets are normal in appearance there is a trivial jet of mitral valve regurgitation identified. The left ventricle is mildly enlarged and there appears to be mild to moderate global hypocontractility identified with an ejection fraction of 40-45%. The aortic valve is a trileaflet structure that is the significantly calcified with fibrocalcific changes. The non coronary cusp exhibits relatively good excursion. The coronary cusps are significantly restricted. There is no detectable aortic valve regurgitation by color Doppler. Direct planimetry was done several times yielding an average valve area of approximately 1.2 cm2. Aortic root dimension is normal. The right-sided chambers are not enlarged the tricuspid valve looks normal. In the right heart chambers the defibrillator lead is seen to be unremarkable in appearance. The descending thoracic aorta is of normal caliber the aortic arch appears to be unremarkable. Conclusion:: Fibrocalcific aortic valve disease with aortic stenosis by planimetry appears to be moderate valve area approximately 1.2 cm2. The non coronary cusp exhibits relatively good excursion as such the aortic valve stenosis is not severe by planimetry Moderate left ventricular systolic dysfunction as mentioned above Doron Carlson MD [facility]
--- NOTE | 2022-01-29 13:09 | SUR.PHASEII ---
procedure completed. patient drowsy but able to follow commands. he was able to put in his own dentures. he is now resting with eyes closed. dr matos in department. no family here. will continue to monitor
--- NOTE | 2022-01-29 13:23 | SUR.PHASEII ---
spoke with and updated her on patient. plan to d/c patient at 1430. aware
--- NOTE | 2022-01-29 13:32 | SUR.PHASEII ---
able to check for patients recovery of gag reflex, he is able to tolerate water with out any difficulty
--- NOTE | 2022-01-29 14:15 | SUR.PHASEII ---
iv d/c tip intact. patient d/c instructions given. print out given. all questions and concerns addressed. patient is able to sit on side of bed to dress himself with out issues. patient ambulated to br with out issues.
== END 2022-01-29 14:32 | disposition home or self-care (01) ==
PROVIDERS: PCP Family Medicine Sports Medicine; Visit Provider Specialist
PROC: (CPT 93312; principal; 2022-01-29 11:30)
DX: I35.0 Nonrheumatic aortic (valve) stenosis (principal); I25.10 Atherosclerotic heart disease of native coronary artery without angina pectoris; M19.90 Unspecified osteoarthritis, unspecified site; I36.1 Nonrheumatic tricuspid (valve) insufficiency; I37.1 Nonrheumatic pulmonary valve insufficiency; R19.7 Diarrhea, unspecified; I10 Essential (primary) hypertension; E78.5 Hyperlipidemia, unspecified; F17.210 Nicotine dependence, cigarettes, uncomplicated; J44.9 Chronic obstructive pulmonary disease, unspecified; I25.2 Old myocardial infarction; Z79.82 Long term (current) use of aspirin
CPT/HCPCS: 93312; 93320; 93325; J2250; J2704; J3010; J7040

== ENCOUNTER 2022-11-04 18:29 | Emergency (ER) | payer BC, MEDICARE, SELFPAY ==
[2022-11-04 18:41] VITALS: BP 143/86; PULSE 69; RESP 18; TEMP 36.4; O2SAT 100
--- NOTE | 2022-11-04 18:58 | ED.SKABFB ---
HPI - Skin/Abscess/Foreign Bdy General Chief complaint: Skin/Abscess/Foreign Body Stated complaint: Rt Facial Swelling Time Seen by Provider: 11/04/22 18:50 Source: patient, family, RN notes reviewed and old records reviewed Mode of arrival: ambulatory Limitations: no limitations History of Present Illness HPI narrative: 62 year old male accompanied by with complaints of right sided facial swelling with some redness and warmth which started today. Patient reports that he has had sinus congestion and drainage and problems with his sinuses for a few months and has seen an ENT from [facility] Dr Wells. Patient reports that he has pain across the bridge of his nose to the right side of his face to his ear and into neck. Patient has noted swelling to area under right eye, cheek, and to jaw line.Patient denies any fevers chills or sweats,denies any dental pain, Patient has no open wounds or area of drainage noted on right cheek. MD complaint: other (swelling red ) Onset (ago): hour(s) (this morning noted) Severity scale (1-10): 5 Quality: other (pressure) Exacerbating factors: palpation Treatments prior to arrival: other (Tylenol) Related Data Home Medications Medication Instructions Recorded Confirmed [id number] 200 mcg-vit K 100 1 cap PO DAILY 05/09/19 11/04/22 mcg-lycop 500 lik-gqzazq-R10 capsule (Daily Multivitamin) folic acid 0.8 mg capsule 0.8 mg PO DAILY 12/13/19 11/04/22 eplerenone 25 mg tablet 25 mg PO DAILY 06/18/20 11/04/22 metoprolol tartrate 100 mg tablet 100 mg PO QAM 05/28/21 11/04/22 coenzyme Q10 100 mg capsule 100 mg PO DAILY 01/28/22 11/04/22 (CoQ-10) ticagrelor 60 mg tablet 60 mg PO Q12H 01/28/22 11/04/22 turmeric root extract 500 mg 500 mg PO DAILY 01/28/22 11/04/22 capsule ivabradine 5 mg tablet (Corlanor) 5 mg PO DAILY 11/04/22 11/04/22 ranolazine 1,000 mg 500 mg PO Q12H 11/04/22 11/04/22 tablet,extended release,12 hr Allergies Allergy/AdvReac Type Severity Reaction Status Date / Time No Known Allergies Allergy Verified 11/04/22 18:49 Review of Systems Review of Systems: CONSTITUTIONAL: Denies fever, chills, or sweats. EYES: Denies visual changes, redness, or discharge. ENT: Positive for rhinorrhea, congestion,no sore throat, or right otalgia.Positive for swelling, redness and pain to right cheek with warmth. CARDIOVASCULAR: Denies chest pain, palpitations, or edema. RESPIRATORY: Denies cough or dyspnea. GASTROINTESTINAL: Denies abdominal pain, nausea, vomiting, or diarrhea. GENITOURINARY: Denies dysuria or hematuria. SKIN: Denies rash or itching. MUSCULOSKELETAL: Denies back pain, joint pain, or myalgia. NEUROLOGIC: Denies headache, numbness, or weakness. PSYCHIATRIC: Denies anxiety or depression. All systems reviewed & are unremarkable except as noted in HPI and below PMFSH Past Medical History Medical History Anxiety Arthritis Arthritis of hand, degenerative Cardiac disorder Pacemaker/defibrillator placed Cardiomyopathy Carpal tunnel syndrome Carpal tunnel syndrome of left wrist Carpal tunnel syndrome of right wrist Cataracts, bilateral Chronic back pain Congestive heart failure EF 60% on 11/08/2018 COPD (chronic obstructive pulmonary disease) Coronary artery disease 3 stents Emphysema of lung GERD (gastroesophageal reflux disease) Hypercholesterolemia Hypertension Pneumonia 08/2017. Requiring intubation for 8 days Rectal polyp Respiratory abnormalities Benign nodule removed from right lung in 2012 Trigger finger (acquired) Surgical History Surgical History H/O cardiac catheterization History of orthopedic surgery Right knee ACL repair, 2 right knee scopes, and right rotator cuff repair Hx of tonsillectomy Family History Family History Father Family history of Parkinson's disease Mother Famil
== END 2022-11-04 19:20 | disposition home or self-care (01) ==
PROVIDERS: Emergency Provider Registered Nurse; PCP Family Medicine Sports Medicine
DX: J01.90 Acute sinusitis, unspecified (principal); L03.211 Cellulitis of face; F17.210 Nicotine dependence, cigarettes, uncomplicated; M19.90 Unspecified osteoarthritis, unspecified site; J44.9 Chronic obstructive pulmonary disease, unspecified; K21.9 Gastro-esophageal reflux disease without esophagitis; E78.00 Pure hypercholesterolemia, unspecified; Z95.810 Presence of automatic (implantable) cardiac defibrillator; I11.0 Hypertensive heart disease with heart failure; I50.9 Heart failure, unspecified; Z95.5 Presence of coronary angioplasty implant and graft
CPT/HCPCS: 99213; G0463

== ENCOUNTER 2023-04-06 10:16 | Inpatient (IN) | payer MEDICARE, BC, SELFPAY ==
[2023-04-05 13:00] VITALS: BMI 25.9
[2023-04-06] VITALS (9 sets, daily range): BP systolic 82–143; BP diastolic 54–78; PULSE 55–68; RESP 12–16; TEMP 36.3; O2SAT 98–100; BMI 25.7; BMI 27.5
[2023-04-06 07:33] LABS: Basophils Percent Auto 0.6 % (0.2-1.2); Eosinophils Absolute Auto 0.1 K/mm3 (0-0.3); Eosinophils Percent Auto 1.2 % (0-4.4); Hematocrit 31.4 % (42.0-52.0); Hemoglobin 11.1 g/dL (14.0-18.0); Immature Granulocyte Absolute 0.03 K/mm3 (0.00-0.031); Immature Granulocyte Percent A 0.4 % (0-0.5); Lymphocytes Absolute Auto 0.97 K/mm3 (0.9-3.2); Lymphocytes Percent Auto 14.2 % (18.3-44.2); Mean Corpuscular HGB Conc 35.4 g/dl (32-36); Mean Corpuscular Hemoglobin 35.5 pg (26-34); Mean Corpuscular Volume 100.3 fl (80-100); Mean Platelet Volume 8.3 fl (7.4-10.4); Monocytes Absolute Auto 0.8 K/mm3 (0.1-0.6); Monocytes Percent Auto 12.1 % (2.6-8.5); Neutrophils Absolute Auto 4.9 K/mm3 (1.3-6.7); Neutrophils Percent Auto 71.5 % (45.5-73.1); Platelet Count Result 131 k/mm3 (150-375); Red Blood Count 3.13 M/mm3 (4.6-6.20); Red Cell Distribution Width 12.6 % (11.5-14.5); White Blood Count 6.8 K/mm3 (4.5-10.0)
[2023-04-06 07:45] LABS: Anion Gap 11 mmol/L (8-16); Blood Urea Nitrogen 16 mg/dL (9-20); Calcium 8.8 mg/dL (8.4-10.2); Carbon Dioxide 25 mmol/L (22-30); Chloride 96 mmol/L (98-107); Estimated CRCL calculation 76 ml/min; Estimated Glomerular Filt Rate > 60; Glucose 98 mg/dL (65-110); Potassium 4.3 mmol/L (3.4-5.0); Sodium 132 mmol/L (137-145)
--- NOTE | 2023-04-06 08:58 | WPDHPUPDATE1 ---
History and Physical Update Update Date/Time: 04/06/23 08:58 History and Physical has been reviewed, including an updated exam of the patient. There are NO changes in the patient's condition. Risks, benefits, and alternatives have been discussed and questions answered. Patient agrees to proceed with procedure.
--- NOTE | 2023-04-06 08:58 | WPDMODSED ---
Moderate Sedation Note-Pt Data Patient Data Diagnosis: Severe aortic stenosis Present Complaint: Severe aortic stenosis Procedure to be performed/Plan: Right heart cath, coronary angiography, left heart cath Allergies Allergy/AdvReac Type Severity Reaction Status Date / Time No Known Allergies Allergy Verified 04/06/23 07:08 Home Medications Medication Instructions Recorded Confirmed Type [id number] 200 mcg-vit K 100 1 cap PO DAILY 05/09/19 04/05/23 History mcg-lycop 500 [id number]-[id number] capsule (Daily Multivitamin) folic acid 0.8 mg capsule 0.8 mg PO DAILY 12/13/19 04/05/23 History eplerenone 25 mg tablet 25 mg PO DAILY 06/18/20 04/05/23 History icosapent ethyl 1 gram capsule 2 g PO BID #180 caps 07/08/20 04/05/23 Rx (Vascepa) sacubitril 97 mg-valsartan 103 mg 1 tablet PO BID #180 tabs 07/08/20 04/05/23 Rx tablet (Entresto) metoprolol tartrate 100 mg tablet 100 mg PO QAM 05/28/21 04/05/23 History temazepam 15 mg capsule (Restoril) 15 mg PO HS PRN Insomnia #90 caps 08/21/21 04/05/23 Rx aspirin 81 mg tablet,delayed 81 mg PO DAILY #90 tabs 08/24/21 04/05/23 Rx release (Mohit Low Dose Aspirin) nitroglycerin 0.4 mg sublingual 0.4 mg sublingual Q5M PRN Chest 08/24/21 04/05/23 Rx tablet (Nitrostat) Pain #20 tabs coenzyme Q10 100 mg capsule 100 mg PO DAILY 01/28/22 04/05/23 History (CoQ-10) ticagrelor 60 mg tablet 60 mg PO Q12H 01/28/22 04/05/23 History turmeric root extract 500 mg 500 mg PO DAILY 01/28/22 04/05/23 History capsule atorvastatin 80 mg tablet 80 mg PO DAILY #90 tabs 05/17/22 04/05/23 Rx ivabradine 5 mg tablet (Corlanor) 5 mg PO DAILY 11/04/22 04/05/23 History ranolazine 1,000 mg 500 mg PO Q12H 11/04/22 04/05/23 History tablet,extended release,12 hr alprazolam 0.5 mg tablet 0.5 mg PO PRN PRN Anxiety 04/05/23 04/05/23 History hyoscyamine sulfate 0.125 mg tablet 0.125 mg PO BID 04/05/23 04/05/23 History nystatin-triamcinolone 100,000 1 applic topical BID 04/05/23 04/05/23 History unit/gram-0.1 % topical ointment Current Medications: Active Medications Sodium Chloride (Normal Saline Iv) 500 mls @ 100 mls/hr IV CONT .Q5H [facility] Sedation/Anesthesia: No previous sedation/anesthesia problems (including family history). [facility] Past Medical History Medical History Anxiety Arthritis Arthritis of hand, degenerative Cardiac disorder Pacemaker/defibrillator placed Cardiomyopathy Carpal tunnel syndrome Carpal tunnel syndrome of left wrist Carpal tunnel syndrome of right wrist Cataracts, bilateral Chronic back pain Congestive heart failure EF 60% on 11/08/2018 COPD (chronic obstructive pulmonary disease) Coronary artery disease 3 stents Emphysema of lung GERD (gastroesophageal reflux disease) Hypercholesterolemia Hypertension Pneumonia 08/2017. Requiring intubation for 8 days Rectal polyp Respiratory abnormalities Benign nodule removed from right lung in 2012 Trigger finger (acquired) Surgical History Surgical History H/O cardiac catheterization History of orthopedic surgery Right knee ACL repair, 2 right knee scopes, and right rotator cuff repair Hx of tonsillectomy Family History Family History Father Family history of Parkinson's disease Mother Family history of chronic obstructive pulmonary disease Family history of diabetes mellitus in first degree relative Family history of heart disease in male family member before age 55 Other Diabetes mellitus Family history of cardiovascular disease Hypertension Social History Social History Smoking packs per day: 1 Smoking cigarettes per day: 20.0 Years smoked: 48 Smoking pack-years: 48.00 Smoking status: Current every day smoker Tobacco type: cigarettes Second hand tobacco smoke exposu
--- NOTE | 2023-04-06 08:59 | WPDCARDPROC ---
Cardiac Cath Procedure Note Date of procedure:: 04/06/23 Performing physician:: CATHETERIZATION LABORATORY REPORT Procedure Date: 04/06/2023 Well Logging Operator Mud Analysis: Cristiano Park M.D., [facility]? Referring Physician: Adán Sandoval M.D. ? Anesthesia: Versed and Fentanyl were ordered and given in my presence at 09:04, procedure ended at 09:51. Supervision of nurse monitored moderate sedation with Versed and Fentanyl was provided for 47 minutes. Total of Versed 1.5mg and Fentanyl 25mcg were administered by the Vice Investigator RN Ryland Lai. Pre-op Diagnosis: Severe aortic stenosis, Coronary artery disease Post-op Diagnosis: 1. Multivessel coronary artery disease with critical distal left main disease 2. Mildly elevated right heart filling pressures 3. No pulmonary hypertension 4. Reduced cardiac output of 3.4 by Neville 5. Reduced cardiac index of 1.7 by Neville Procedure(s): 1. Moderate sedation 2. Ultrasound guided access of the right femoral vein 3. Ultrasound guided access of the right radial artery 4. Right heart cath 5. Coronary angiography Access Site: Right radial artery Right femoral vein Brief History and Clinical Indications: Patient is a 62 year old male with coronary artery disease with prior PCI and severe aortic stenosis who presents for outpatient elective cardiac cath for workup of severe . All risks, benefits and alternatives to cardiac catheterization with or without percutaneous coronary intervention was discussed at length with the patient. Risk of complications including but not limited to bleeding, infection, arrhythmia, stroke, worsening kidney function, blood loss, groin hematoma, limb loss, emergency coronary artery bypass grafting, and even were discussed with the patient and all questions were answered. The patient understood and wished to proceed. Time out called, patient name, date of , medical record number, allergies, procedure performed, identify Well Logging Operator Mud Analysis, patient and staff member concurred with accurate data, procedure carried on. Findings: LEFT HEART CATHETERIZATION FINDINGS: 1. Left main: Large caliber vessel. The distal left main has a 95-99% stenosis. Left main disease appears to extend into the ostium of the LAD. 2. Left anterior descending: Left main disease appears to extend into ostium of LAD. There is a small aneurysm in the mid LAD immediately proximal to the mid LAD stent. The mid LAD stent is widely patent. Remainder of the LAD has mild diffuse disease. The first diagonal branch is a small caliber vessel with significant ostial disease of 95-99%. The second diagonal branch has a widely patent stent in its proximal portion. 3. Left circumflex: The left circumflex has mild diffuse disease. The ostium of the OM branch has significant 80-90% stenosis; remainder of the OM branch has mild diffuse disease. 4. Right coronary artery: The RCA is the dominant vessel. The RCA has an anterior takeoff. The proximal RCA appears aneurysmal. There are heavy diffuse calcifications in the RCA. There is a significant obstructive hazy stenosis in the mid RCA. RPLV and RPDA are without obstructive disease. 5. Left ventricle: The aortic valve was not crossed due to known severe aortic stenosis. RIGHT HEART CATHETERIZATION FINDINGS: Pressures (mmHg): RA: 9 mmHg RV: 31/11 mmHg PA: 21/6 mmHg with mean of 12mmHg PCWP: 13 mmHg Saturations (%): PA: 46.8% Arterial: 95.8% CO/CI: Neville CO: 3.4 Neville CI: 1.7 Description of Procedure: Informed consent signed and placed in the chart. Patient transferred to recyclable materials sorter room. Prepped and draped in usual sterile fashion. 2% lidocaine injected subcutaneously in right groin area. Right femoral vein was accessed using micropuncture technique under ultrasound guidance. 7-FR sheath placed. 7F Wheaton-Yudy catheter was advanced into the right side of the heart chambers and pressures were measured. 2% lidocaine injected subcutaneously in right wrist area
--- NOTE | 2023-04-06 10:16 | ECG_ITS ---
Measurements Intervals [place] Rate: 65 P: 55 NC: 141 QRS: 42 QRSD: 186 T: 81 QT: 505 QTc: 527 Interpretive Statements SINUS RHYTHM WITH VENTRICULAR PACING ABNORMAL ECG COMPARED TO ECG 12/24/2019 08:13:14 SINUS RHYTHM NOW PRESENT INTRAVENTRICULAR CONDUCTION DELAY NOW PRESENT Electronically Signed On 04-06-2023 15:44:30 CDT by Radu Sandoval M.D.
--- NOTE | 2023-04-06 10:47 | PM.IMHP ---
H&P: HPI History of Present Illness Date/Time: 04/06/23 10:47 Chief Complaint: Patient presents for outpatient cardiac cath for workup of severe aortic stenosis. Narrative: Patient presented for outpatient C/RHC for workup of severe aortic stenosis. After receiving IV sedation, patient started to become hypotensive with SBP as low as 60s. Herman boluses given and Levophed drip started. Cardiac cath showed MVCAD with critical distal left main disease. Levophed was eventually weaned off by the time the case finished and did not require further pressor support. Given this hypotension in the setting of critical left main disease and known severe aortic stenosis, patient will be admitted to the ICU for close monitoring and we will work on transfer to [facility] for CT Surgery evaluation for CABG + AVR. Dr. Sandoval at bedside in the recyclable materials collector, findings discussed with Dr. Sandoval, the patient, and the patient's . Dr. Sandoval discussed patient's case with MOBAP CTS. Review of Systems Review of Systems: All systems reviewed & are unremarkable except as noted in HPI and below (HPI) [facility] Past Medical History Medical History Anxiety Arthritis Arthritis of hand, degenerative Cardiac disorder Pacemaker/defibrillator placed Cardiomyopathy Carpal tunnel syndrome Carpal tunnel syndrome of left wrist Carpal tunnel syndrome of right wrist Cataracts, bilateral Chronic back pain Congestive heart failure EF 60% on 11/08/2018 COPD (chronic obstructive pulmonary disease) Coronary artery disease 3 stents Emphysema of lung GERD (gastroesophageal reflux disease) Hypercholesterolemia Hypertension Pneumonia 08/2017. Requiring intubation for 8 days Rectal polyp Respiratory abnormalities Benign nodule removed from right lung in 2012 Trigger finger (acquired) Surgical History Surgical History H/O cardiac catheterization History of orthopedic surgery Right knee ACL repair, 2 right knee scopes, and right rotator cuff repair Hx of tonsillectomy Family History Family History Father Family history of Parkinson's disease Mother Family history of chronic obstructive pulmonary disease Family history of diabetes mellitus in first degree relative Family history of heart disease in male family member before age 55 Other Diabetes mellitus Family history of cardiovascular disease Hypertension Social History Social History Smoking packs per day: 1 Smoking cigarettes per day: 20.0 Years smoked: 48 Smoking pack-years: 48.00 Smoking status: Current every day smoker Tobacco type: cigarettes Second hand tobacco smoke exposure: Yes Additional smoking assessment comments: down to .5 pack per day Alcohol intake: current Drinks per week: 21 Alcohol use details: a couple glasses of wine with dinner and 1 mixed drink at bedside Substance use: never Substance use type: does not use Living arrangements: with family Additional living arrangements comments: patient is on disability Spiritual care concerns: No Meds Home Medications and Allergies Home Medications Medication Instructions Recorded Confirmed Type [id number] 200 mcg-vit K 100 1 cap PO DAILY 05/09/19 04/05/23 History mcg-lycop 500 [id number] capsule (Daily Multivitamin) folic acid 0.8 mg capsule 0.8 mg PO DAILY 12/13/19 04/05/23 History eplerenone 25 mg tablet 25 mg PO DAILY 06/18/20 04/05/23 History icosapent ethyl 1 gram capsule 2 g PO BID #180 caps 07/08/20 04/05/23 Rx (Vascepa) sacubitril 97 mg-valsartan 103 mg 1 tablet PO BID #180 tabs 07/08/20 04/05/23 Rx tablet (Entresto) metoprolol tartrate 100 mg tablet 100 mg PO QAM 05/28/21 04/05/23 History temazepam 15 mg capsule (Restoril) 15 mg PO HS PRN Insomnia #90 caps 07/29
--- NOTE | 2023-04-06 15:41 | ECG_ITS ---
Measurements Intervals [place] Rate: 83 P: 56 MA: 135 QRS: -73 QRSD: 172 T: 107 QT: 447 QTc: 527 Interpretive Statements SINUS RHYTHM WITH VENTRICULAR PACING ATYPICAL ECG COMPARED TO ECG 04/06/2023 12:50:47 LEFT-AXIS DEVIATION NOW PRESENT INTRAVENTRICULAR CONDUCTION DELAY NOW PRESENT Electronically Signed On 04-06-2023 15:47:55 CDT by Radu Sandoval M.D.
--- NOTE | 2023-04-06 16:00 | PC.NURSE ---
1545-Patient having chest pain and diaphoretic. Dr. Sandoval notified. Dr. Park and Dr. Sandoval at bedside.
--- NOTE | 2023-04-06 16:02 | PC.NURSE ---
1600-Patient emergently taken to recyclable materials collector.
--- NOTE | 2023-04-06 16:45 | P.PCNCC_ITS ---
Cardiac Cath Procedure Note Date of procedure:: 04/06/23 Performing physician:: CATHETERIZATION LABORATORY REPORT Procedure Date: 04/06/2023 Vice President Of Brand Management: Cristiano Park M.D., [facility]? Referring Physician: Adán Sandoval M.D. ? Anesthesia: No IV sedation was administered for this procedure. Procedure start time: 16:09 Procedure end time: 16:27 Total procedure time: 18 minutes Pre-op Diagnosis: Severe angina in setting of MVCAD with left main disease, severe Post-op Diagnosis: Successful placement of IABP Procedure(s): 1. Ultrasound-guided access of the right common femoral artery 2. Placement of IABP Access Site: Right common femoral artery Brief History and Clinical Indications: Patient is a 62 year old male who is referred for emergent IABP placement in setting of severe angina, decompensation with MVCAD with left main disease, severe . All risks, benefits and alternatives to IABP placement was discussed at length with the patient. Risk of complications including but not limited to bleeding, infection, arrhythmia, stroke, worsening kidney function, blood loss, groin hematoma, limb loss, emergency surgery, and even were discussed with the patient and all questions were answered. The patient understood and wished to proceed. Time out called, patient name, date of , medical record number, allergies, procedure performed, identify Vice President Of Brand Management, patient and staff member concurred with accurate data, procedure carried on. Description of Procedure: Informed consent signed and placed in the chart. Patient transferred to phlebotomist medical lab assistant room. Prepped and draped in usual sterile fashion. 2% lidocaine in right groin area. Micropuncture needle used to access right common femoral artery under ultrasound guidance. J wire advanced, micropuncture cannula placed. Right iliofemoral angiogram performed, access confirmed and micropuncture cannula exchanged for 6-FR sheath. Arterial access was upsized to 10F. 10F sheath placed. IABP was placed successfully over the IABP wire. IABP positioning was confirmed via fluroscopy and then sutured in place. ? Assessment: Successful placement of IABP Post Operative Condition: Stable No significant blood loss Disposition: [facility] via [facility] team. Plan: Patient being transferred to [facility] via [facility] team. ? Cristiano Park M.D. Interventional Cardiology
== END 2023-04-06 17:15 | disposition short-term general hospital (02) | DRG 271 ==
LOC: ANHICU 10:37
PROVIDERS: Admitting Provider Internal Medicine; PCP Family Medicine Sports Medicine; Visit Provider Internal Medicine Cardiovascular Disease
PROC: 5A02210 Assistance with Cardiac Output using Balloon Pump, Continuous (ICD-10-PCS; CPT 93566; principal; 2023-04-06 08:30)
DX: I25.119 Atherosclerotic heart disease of native coronary artery with unspecified angina pectoris (principal); I97.88 Other intraoperative complications of the circulatory system, not elsewhere classified; I35.0 Nonrheumatic aortic (valve) stenosis; I11.0 Hypertensive heart disease with heart failure; I50.9 Heart failure, unspecified; I42.9 Cardiomyopathy, unspecified; J44.9 Chronic obstructive pulmonary disease, unspecified; E78.00 Pure hypercholesterolemia, unspecified; M19.049 Primary osteoarthritis, unspecified hand; F41.9 Anxiety disorder, unspecified; F17.210 Nicotine dependence, cigarettes, uncomplicated; Z79.82 Long term (current) use of aspirin; Z95.810 Presence of automatic (implantable) cardiac defibrillator; Z95.5 Presence of coronary angioplasty implant and graft
CPT/HCPCS: 33967; 36415; 80048; 85025; 93005; 93456; C1769; C1887; C1894; J1644; J2250; J2305; J2371; J3010; J7040

== ENCOUNTER 2024-04-02 15:53 | Observation (INO) | payer MEDICARE, BC, SELFPAY ==
[2024-04-02] VITALS (15 sets, daily range): BP systolic 110–183; BP diastolic 56–117; PULSE 77–106; RESP 18–26; TEMP 36.8–36.9; O2SAT 91–100; BMI 28.2
--- NOTE | ~2024-04-02 | XR_ITS ---
EXAMINATION: XR chest 1V portable DATE: 04/02/2024 16:49 INDICATION: Chest pain. Shortness of breath. TECHNIQUE: A single frontal view of the chest was obtained on 2 radiographs. COMPARISON: Chest 2 views 01/2417 FINDINGS: There is a staple line in right lung. There is a diffuse interstitial pattern, consistent w ith mild pulmonary edema. No pleural effusion or pneumothorax. The heart size is normal. There are ch anges of aortic valve replacement. There is a left chest wall pacer with leads in the right atrium, r ight ventricle, and coronary sinus. IMPRESSION: 1. Mild pulmonary edema. Reviewed, dictated and finalized at location A. IMPRESSION: 1. Mild pulmonary edema.
--- NOTE | 2024-04-02 15:55 | ECG_ITS ---
Test Date: 2024-04-02 16:05:31 Measurements Intervals [place] Rate: 96 P: 45 CA: 166 QRS: -33 QRSD: 154 T: 85 QT: 389 QTc: 494 Interpretive Statements BASELINE ARTIFACT, POOR QUALITY ECG SINUS RHYTHM WITH ATRIAL SENSING AND ELECTRONIC VENTRICULAR PACEMAKER ABNORMAL RHYTHM ECG No previous ECG available for comparison Electronically Signed On 04-03-2024 07:22:48 CDT by Doron Carlson M.D.
--- NOTE | 2024-04-02 16:03 | ED.CHESTPAIN ---
HPI - Chest Pain General Chief Complaint: Chest Pain <Dana Zuleta PA-C - Last Filed: 04/03/24 09:40> Stated Complaint: cp <Dana Zuleta PA-C - Last Filed: 04/03/24 09:40> Time Seen by Provider: 04/02/24 16:03 <Dana Zuleta PA-C - Last Filed: 04/03/24 09:40> Focused HPI: Patient is a 63-year-old male, past medical history of CAD, who presents to the ED with report of shortness of breath. Patient reports he was in the cardiology office today having an external echocardiogram when he suddenly developed severe shortness of breath. States he feels like he cannot breathe. Does have history of emphysema, but denies typical issues with this. States the symptoms feel similar to the last time he had a heart attack last year. Sees Dr. Sandoval. Denies significant CP, states he just cannot breath. Denies recent illness/cough/cold sx's. GENERAL: Ill/pale-appearing, in moderate acute distress. HEAD: Normocephalic, atraumatic. CHEST: Patient tachypneic with accessory muscle use, pursed lipped breathing. Decreased lung sounds throughout, occasional wheezing, worse throughout right lung. HEART: Tachycardic with irregular rhythm. SKIN: Moderate diaphoresis. Slightly pale appearing. NEURO: ?Alert and oriented x3. Patient screened in triage and initial orders placed.? ?Additional care and disposition to be based upon?diagnostic testing and treatment. <Dana Zuleta PA-C - Last Filed: 04/03/24 09:40> Source: patient <Dana Zultea PA-C - Last Filed: 04/03/24 09:40> Mode of arrival: ambulatory <Dana Zuleta PA-C - Last Filed: 04/03/24 09:40> Limitations: no limitations <SOHEILA Whiteside Last Filed: 04/03/24 09:40> History of Present Illness HPI narrative: Agree with HPI. <Jeremy Benítez MD - Last Filed: 04/03/24 11:01> Related Data Home Medications: Home Medications Medication Instructions Recorded Confirmed [id number] 200 mcg-vit K 100 1 cap PO DAILY 05/09/19 04/02/24 mcg-lycop 500 [id number] capsule (Daily Multivitamin) folic acid 0.8 mg capsule 0.8 mg PO DAILY 12/13/19 04/02/24 eplerenone 25 mg tablet 25 mg PO DAILY 06/18/20 04/02/24 coenzyme Q10 100 mg capsule 100 mg PO DAILY 01/28/22 04/02/24 (CoQ-10) ticagrelor 60 mg tablet 60 mg PO Q12H 01/28/22 04/02/24 turmeric root extract 500 mg 500 mg PO DAILY 01/28/22 04/02/24 capsule alprazolam 0.5 mg tablet 0.5 mg PO HS PRN insomnia/anxiety 04/05/23 04/02/24 amlodipine 5 mg tablet 5 mg PO DAILY 04/02/24 04/02/24 atorvastatin 80 mg tablet 80 mg PO QPM 04/02/24 04/02/24 carvedilol 25 mg tablet 25 mg PO BID 04/02/24 04/02/24 furosemide 40 mg tablet 40 mg PO DAILY 04/02/24 04/02/24 hyoscyamine sulfate 0.375 mg 0.375 mg PO Q12H 04/02/24 04/02/24 tablet,extended release,12 hr <Dana Zuleta PA-C - Last Filed: 04/03/24 09:40> Allergies/Adverse Reactions: Allergies Allergy/AdvReac Type Severity Reaction Status Date / Time No Known Allergies Allergy Verified 04/02/24 20:15 <Dana Zuleta PA-C - Last Filed: 04/03/24 09:40> Review of Systems Review of Systems: All systems reviewed & are unremarkable except as noted in HPI and below <Jeremy Benítez MD - Last Filed: 04/03/24 11:01> Constitutional: Constitutional: Reports no additional constitutional complaints <Jeremy Benítez MD - Last Filed: 04/03/24 11:01> ENT: Reports system reviewed and no additional complaints, except as documented <Jeremy Benítez MD - Last Filed: 04/03/24 11:01> Cardiovascular: Cardiovascular: Reports chest pain, Denies rapid heart rate and Denies radiating jaw, neck or arm pain <Jeremy Benítez MD - Last Filed: 04/03/24 11:01> Respiratory: Respiratory: Denies cough, Reports dyspnea and Reports wheezing <Jeremy Benítez MD - Last Filed: 04/03/24 11:01> Gastrointestinal: Gastrointestinal: Reports no additional gastrointestinal complai
[2024-04-02] MEDS: NITROGLYCERIN SL 0.4 MG TABLET SUBLINGUAL (16:20)
[2024-04-02] MEDS: ASPIRIN 81 MG CHEWABLE TABLET 324 MG PO (16:35)
[2024-04-02 16:39] LABS: Alveolar/Arterial O2 Gradient 87.6 mmHg; Base Excess ABG -4.9 mEq/l (+/-2.0); Device BIPAP; Fractional Inspired Oxygen 28 %; HCO3 ABG 20.5 mEq/l (22.0-26.0); Modified Allen's Test Pass; Oxygen Content ABG 16.1 %vol (16.0-22.0); Oxygen Saturation ABG 91.8 % (95.0-100.0); Oxyhemoglobin 87.9 % THb (90.0-100.0); PCO2 ABG 39.3 mmHg (35.0-45.0); PO2 ABG 65.7 mmHg (80.0-100.0); PO2 FiO2 Ratio Arterial Blood 2.35 %; Site Drawn LEFT RADIAL; pH ABG 7.335 (7.350-7.450)
[2024-04-02 16:40] LABS: Basophils Absolute Auto 0.1 K/mm3 (0.0-0.1); Eosinophils Absolute Auto 0.1 K/mm3 (0-0.3); Eosinophils Percent Auto 1.2 % (0-4.4); Hematocrit 35.5 % (42.0-52.0); Hemoglobin 12.7 g/dL (14.0-18.0); Immature Granulocyte Absolute 0.02 K/mm3 (0.00-0.031); Immature Granulocyte Percent A 0.3 % (0-0.5); Lymphocytes Absolute Auto 0.94 K/mm3 (0.9-3.2); Mean Corpuscular HGB Conc 35.8 g/dl (32-36); Mean Corpuscular Hemoglobin 35.9 pg (26-34); Mean Corpuscular Volume 100.3 fl (80-100); Mean Platelet Volume 8.9 fl (7.4-10.4); Monocytes Absolute Auto 0.8 K/mm3 (0.1-0.6); Monocytes Percent Auto 11.5 % (2.6-8.5); Neutrophils Absolute Auto 5.3 K/mm3 (1.3-6.7); Platelet Count Result 132 k/mm3 (150-375); Red Blood Count 3.54 M/mm3 (4.6-6.20); Red Cell Distribution Width 12.7 % (11.5-14.5); White Blood Count 7.2 K/mm3 (4.5-10.0)
[2024-04-02 16:40] LABS: Expiratory Pressure 6 cmH2O; Inspiratory Pressure 12 cmH2O
--- NOTE | 2024-04-02 16:47 | PCRCNOTE ---
Pt placed on bipap 06/01 @ 1627 with 28% FiO2
[2024-04-02 16:51] LABS: Alanine Aminotransferase 51 U/L (6-50); Albumin Level 5.1 g/dL (3.5-5.1); Alkaline Phosphatase 147 U/L (38-126); Anion Gap 14 mmol/L (4-12); Aspartate Amino Transferase 62 U/L (17-59); Bilirubin,Total 1.3 mg/dL (0.2-1.3); Blood Urea Nitrogen 12 mg/dL (9-20); Calcium 9.1 mg/dL (8.4-10.2); Carbon Dioxide 22 mmol/L (22-30); Chloride 93 mmol/L (98-107); Estimated CRCL calculation 84 ml/min; Estimated Glomerular Filt Rate > 60; Glucose 160 mg/dL (65-110); Lipase 57 U/L (23-300); Potassium 4.4 mmol/L (3.4-5.0); Sodium 129 mmol/L (137-145)
--- NOTE | 2024-04-02 16:57 | PCRCNOTE ---
Bipap settings changed to 16/8 from 06/[address] Benítez @ 3674. FiO2 still set @ 28%
[2024-04-02] MEDS: FUROSEMIDE INJ 40 MG/4 ML VIAL IV PUSH (17:00)
[2024-04-02 17:02] LABS: NT Pro B Type Natriuretic Pept 1220 pg/mL (19.9-100); Troponin I < 0.012 ng/mL (0.000-0.034)
[2024-04-02 17:05] LABS: Prothrombin Time 13.6 Seconds (11.1-14.7)
[2024-04-02 17:06] LABS: Partial Thromboplastin Time 26.7 Seconds (22.3-36.8)
[2024-04-02] MEDS: ALBUTEROL SULFATE NEB 2.5 MG/3 ML INH 15 MG INHALATION (17:30)
[2024-04-02] MEDS: IPRATROPIUM BR 0.02% INH SOLN 0.5 MG/2.5 ML VIAL 1.5 MG INHALATION (17:30)
[2024-04-02 19:43] LABS: Troponin I 0.021 ng/mL (0.000-0.034)
--- NOTE | 2024-04-02 20:21 | PM.IMHP ---
H&P: HPI History of Present Illness Date/Time: 04/02/24 20:21 Chief Complaint: sob Narrative: This is a 63-year-old male with past medical history significant for coronary artery disease, bioprosthetic valve, COPD, GERD, hypertension. patient presents to the emergency room due to sudden onset of shortness of breath while laying down at the loftsman's office for an echocardiogram. Patient has been in his usual state of health up until this point denies any fevers, rigors, chills, nausea, vomiting, diarrhea, chest pain. In emergency room patient was found to have some respiratory distress received nebulizer treatments. Preliminary workup was significant for chest x-ray with mild pulmonary edema. patient has been placed in observation for further evaluation management and treatment. EXAMINATION: XR chest 1V portable DATE: 04/02/2024 16:49 INDICATION: Chest pain. Shortness of breath. TECHNIQUE: A single frontal view of the chest was obtained on 2 radiographs. COMPARISON: Chest 2 views 01/2417 FINDINGS: There is a staple line in right lung. There is a diffuse interstitial pattern, consistent with mild pulmonary edema. No pleural effusion or pneumothorax. The heart size is normal. There are changes of aortic valve replacement. There is a left chest wall pacer with leads in the right atrium, right ventricle, and coronary sinus. IMPRESSION: 1. Mild pulmonary edema. Review of Systems Review of Systems: Shortness of breath, wheezing. [facility] Past Medical History Medical History (Updated 04/03/24 @ 11:01 by Jeremy Bentíez MD) Adenomatous colon polyp Anemia Anxiety Arthritis Arthritis of hand, degenerative Bloating Cardiac disorder Pacemaker/defibrillator placed Cardiomyopathy Carpal tunnel syndrome Carpal tunnel syndrome of left wrist Carpal tunnel syndrome of right wrist Cataracts, bilateral Chronic back pain Congestive heart failure EF 60% on 11/08/2018 COPD (chronic obstructive pulmonary disease) Coronary artery disease 3 stents Diarrhea Early satiety Emphysema of lung GERD (gastroesophageal reflux disease) Hypercholesterolemia Hypertension Pneumonia 08/2017. Requiring intubation for 8 days Rectal bleeding Rectal polyp Respiratory abnormalities Benign nodule removed from right lung in 2012 Tenesmus (rectal) Trigger finger (acquired) Surgical History Surgical History H/O cardiac catheterization History of orthopedic surgery Right knee ACL repair, 2 right knee scopes, and right rotator cuff repair Hx of tonsillectomy Family History Family History Father Family history of Parkinson's disease Mother Family history of chronic obstructive pulmonary disease Family history of diabetes mellitus in first degree relative Family history of heart disease in male family member before age 55 Other Diabetes mellitus Family history of cardiovascular disease Hypertension Social History Social History Smoking packs per day: 1 Smoking cigarettes per day: 20.0 Years smoked: 48 Smoking pack-years: 48.00 Smoking status: Heavy tobacco smoker Second hand tobacco smoke exposure: Yes Additional smoking assessment comments: down to .5 pack per day Alcohol intake: current Drinks per week: 21 Alcohol use details: a couple glasses of wine with dinner and 1 mixed drink at bedside Substance use: never Substance use type: does not use Last use: 04/01/21 Do You Feel Safe in your Home?: Yes Lack of Transportation: No Lack of Food: Never True Current Housing: I Have Housing Concerned About Future Housing: No Difficulty Paying Gas/Electric Bills: No Difficulty Paying for Meds: No Currently Unemployed: No Education: Associate Degree Difficulty w/ Childcare or Family Care: No Living arrangements: with [facility]
--- NOTE | 2024-04-02 20:30 | PC.NURSE ---
edp and rt discussed bipap. pt requesting to trial coming off. Will monitor o2 saturation on trial period.
--- NOTE | 2024-04-02 20:55 | ADMGEN ---
This patient, Jcarlos Michaud, was admitted to IMU Room 211-01 at 2054. Patient/family oriented to hospital policies and general routines including ID bracelet, bed and alarms, visiting hours, pain management, procedures, bathroom and other care routines, personal items, smoking policy, room service/diet, and visiting hours. Information on how to activate the Rapid Response Team has been discussed. Patient/Family are encouraged to report perceived risks to care and to ask questions if they do not understand what they are told or what they should do.
[2024-04-03] VITALS (19 sets, daily range): BP systolic 120–156; BP diastolic 62–85; PULSE 71–100; RESP 12–20; TEMP 36.6–36.8; O2SAT 93–100
[2024-04-03] MEDS: ALPRAZolam (*CRX) 0.5 MG TABLET PO (01:45)
[2024-04-03] MEDS: ALBUTEROL SULFATE NEB 2.5 MG/3 ML INH INHALATION ×3 (03:55→13:23)
[2024-04-03] MEDS: IPRATROPIUM BR 0.02% INH SOLN 0.5 MG/2.5 ML VIAL INHALATION ×3 (03:55→13:23)
[2024-04-03] MEDS: HYDROcodone/acetaminophen (*CRX) 5-325 MG TABLET 1 TAB PO (04:21)
[2024-04-03] MEDS: OMEGA 3 POLYUNSAT FATTY ACIDS 1 GM CAP 2 GM PO (08:25)
[2024-04-03] MEDS: SACUBITRIL/VALSARTAN 97-103 MG TABLET 1 TAB PO (08:27)
[2024-04-03] MEDS: amLODIPine BESYLATE 5 MG TABLET PO (08:27)
[2024-04-03] MEDS: ASPIRIN 81 MG ENTERIC TABLET PO (08:27)
[2024-04-03] MEDS: carvediloL 25 MG TABLET PO (08:27)
[2024-04-03] MEDS: PANTOPRAZOLE 40 MG TABLET PO (08:27)
[2024-04-03] MEDS: FUROSEMIDE 40 MG TABLET PO (08:27)
[2024-04-03] MEDS: TICAGRELOR 60 MG TABLET PO (08:28)
[2024-04-03] MEDS: FOLIC ACID 0.4 MG TABLET 0.8 MG PO (08:28)
[2024-04-03] MEDS: HYOSCYAMINE SULFATE 0.375 MG TAB.ER.12H PO (08:28)
--- NOTE | 2024-04-03 10:34 | PM.IMPN ---
Subjective Date/time seen: 04/03/24 10:34 Interval history: Patient was evaluated bedside. Patient has extensive cardiac disease with 6 stents and the last one was placed on March 2023 with aortic valve replacement (Bovine). Patient is a long-term smoker for more than 50 years. Patient is a chronic alcoholic. He is currently on the CIWA score. During that admission patient was on the BiPAP but currently on room air saturating well 93-95% on room air. During the admission troponins were negative. BNP 1220. Yesterday he went for outpatient echocardiogram where he felt short of breath which was worse and seek medical attention Objective Data Vital Signs Vital Signs: Vital Signs - 24 hr 04/02/24 15:56 04/02/24 16:25 04/02/24 16:38 Temperature Pulse Rate 96 106 H Respiratory Rate 24 H 24 H Blood Pressure 181/117 H 183/93 H Pulse Oximetry 91 97 94 Oxygen Delivery Room Air BiPAP BiPAP Fraction of Inspired Oxygen 04/02/24 16:27 04/02/24 16:27 04/02/24 16:55 Temperature Pulse Rate 88 Respiratory Rate 26 H Blood Pressure Pulse Oximetry 95 95 93 Oxygen Delivery BiPAP BiPAP BiPAP Fraction of Inspired Oxygen 28 28 04/02/24 16:55 04/02/24 16:31 04/02/24 16:46 Temperature Pulse Rate 81 83 80 Respiratory Rate 21 H 23 H 23 H Blood Pressure 119/83 110/83 Pulse Oximetry 93 97 92 Oxygen Delivery BiPAP Fraction of Inspired Oxygen 04/02/24 17:01 04/02/24 17:30 04/02/24 17:30 Temperature Pulse Rate 81 77 Respiratory Rate 21 H 22 H Blood Pressure 144/83 H Pulse Oximetry 97 96 96 Oxygen Delivery BiPAP BiPAP Fraction of Inspired Oxygen 28 04/02/24 17:30 04/02/24 18:17 04/02/24 19:42 Temperature Pulse Rate 77 77 81 Respiratory Rate 22 H 18 20 Blood Pressure 117/81 125/72 Pulse Oximetry 100 100 Oxygen Delivery Fraction of Inspired Oxygen 04/02/24 20:58 04/02/24 20:58 04/02/24 20:50 Temperature 98.2 F Pulse Rate 88 89 Respiratory Rate 20 Blood Pressure 165/78 H Pulse Oximetry 97 Oxygen Delivery Room Air Fraction of Inspired Oxygen 04/02/24 22:00 04/02/24 23:01 04/03/24 00:00 Temperature 98.4 F Pulse Rate 93 89 Respiratory Rate 20 Blood Pressure 117/56 L Pulse Oximetry 92 Oxygen Delivery Room Air Fraction of Inspired Oxygen 04/03/24 03:56 04/03/24 00:00 04/03/24 02:00 Temperature Pulse Rate 71 80 82 Respiratory Rate 19 Blood Pressure Pulse Oximetry Oxygen Delivery Fraction of Inspired Oxygen 04/03/24 04:04 04/03/24 04:13 04/03/24 04:00 Temperature 98.3 F Pulse Rate 73 89 Respiratory Rate 17 20 Blood Pressure 137/62 Pulse Oximetry 93 Oxygen Delivery Room Air Fraction of Inspired Oxygen 04/03/24 04:00 04/03/24 06:00 04/03/24 07:35 Temperature Pulse Rate 84 83 Respiratory Rate Blood Pressure Pulse Oximetry 95 Oxygen Delivery Room Air Fraction of Inspired Oxygen 04/03/24 07:35 04/03/24 07:46 04/03/24 08:27 Temperature Pulse Rate 90 92 100 Respiratory Rate 18 18 Blood Pressure Pulse Oximetry Oxygen Delivery Fraction of Inspired Oxygen 04/03/24 08:00 04/03/24 08:00 Temperature 97.9 F Pulse Rate 87 Respiratory Rate 16 Blood Pressure 156/83 H Pulse Oximetry 100 95 Oxygen Delivery Room Air Fraction of Inspired Oxygen Intake/Output Intake/Output: Intake & Output 03/31/24 04/01/24 04/02/24 04/03/24 23:59 23:59 23:59 23:59 Intake Total 1200 Output Total 300 200 Balance -300 1000 Meds/Results Medications: Active Medications Generic Name Dose Route Start Last Admin Trade Name Freq PRN Reason Stop Dose Admin Acetaminophen 650 mg 04/02/24 19:36 Acetaminophen 325 Mg Tablet PO Q4H PRN Mild Pain (1-3) or Fever Hydrocodone Bitart/Acetaminophen 1 tab 04/02/24 19:36 04/03/24 04:21 Hydrocodone/Acetaminophen (*Crx) 5-325 Mg Tablet PO 1 tab Q4H PRN Administration Pa
[2024-04-03 10:57] LABS: Hematocrit 31.4 % (42.0-52.0); Hemoglobin 11.1 g/dL (14.0-18.0); Immature Platelet Fraction Pct 2.2 % (0.9-11.2); Mean Corpuscular HGB Conc 35.4 g/dl (32-36); Mean Corpuscular Hemoglobin 35.5 pg (26-34); Mean Corpuscular Volume 100.3 fl (80-100); Mean Platelet Volume 8.9 fl (7.4-10.4); Platelet Count Result 120 k/mm3 (150-375); Red Blood Count 3.13 M/mm3 (4.6-6.20); White Blood Count 7.2 K/mm3 (4.5-10.0)
[2024-04-03 11:06] LABS: Alanine Aminotransferase 38 U/L (6-50); Albumin Level 4.7 g/dL (3.5-5.1); Alkaline Phosphatase 97 U/L (38-126); Anion Gap 11 mmol/L (4-12); Aspartate Amino Transferase 41 U/L (17-59); Bilirubin,Total 1.3 mg/dL (0.2-1.3); Blood Urea Nitrogen 18 mg/dL (9-20); Calcium 8.8 mg/dL (8.4-10.2); Carbon Dioxide 28 mmol/L (22-30); Chloride 91 mmol/L (98-107); Estimated CRCL calculation 68 ml/min; Estimated Glomerular Filt Rate > 60; Glucose 127 mg/dL (65-110); Potassium 3.8 mmol/L (3.4-5.0); Sodium 130 mmol/L (137-145)
--- NOTE | 2024-04-03 11:40 | PC.NURSE ---
Erp Specialist, Syeda, reports echo was completed outpt, she also made Dr. Carlson aware. Dr. Carlson will see pt and address need for further work-up. Echo cancelled.
--- NOTE | 2024-04-03 11:46 | PCCARD ---
Echo done in [facility] on 04/02/24
--- NOTE | 2024-04-03 13:22 | PM.CNCAR ---
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 The patient would wish to make this a tap this effort because of frequent urination. He has turned around rapidly after being diuresed yesterday and receiving BiPAP support for a short time. He is already on aggressive and very appropriate guideline directed medical therapy for his low ejection fraction there are no additions or adjustments to be made at this time. He appears to be stable enough for discharge at this time he should continue his furosemide at the previous dosage of 40 mg daily and there should not be any attempts made to wean it in the foreseeable future. Doron Carlson MD [facility] History of Present Illness History of Present Illness Consult date/time: 04/03/24 13:22 Reason For Visit: CHF exacerbation. COPD exacerbation Narrative: this is a very pleasant but somewhat unfortunate 63-year-old man with coronary heart disease, valvular heart disease who is under the care of my partner, Dr. Sandoval. The patient was admitted to the hospital last evening with abrupt severe shortness of breath which prompted him to be sent from the office to the emergency room and then he was admitted to the hospital. He was treated with intravenous furosemide, noninvasive ventilator for a short time last evening he is feeling much better and has no complaints at this time. The patient's not reporting any symptoms of chest pain pressure or heaviness he denies any orthopnea or PND he has noticed recently he has been accumulating some lower extremity edema. He had been on furosemide 40 mg daily for his ischemic LV dysfunction. Recently there were attempts made to wean and discontinue furosemide and after doing that he has noticed the accumulating edema in yesterday evening he became severely short of breath in the office when he was having an echocardiogram done. The patient has a history of ischemic heart disease with percutaneous revascularization procedures in 2016 and 2018. He is a had known to have left ventricular systolic dysfunction and had a CARDIOPULMONARY TECHNOLOGIST device implanted in 2018 and has been followed in our office. He then developed severe aortic valve stenosis which are resulted in him becoming severely unstable in the fall of 2022. He was hospitalized here at [place] and was brought to the dental laboratory technology teacher and found to have a critical left main coronary stenosis as well. He became very unstable after that had a balloon pump implanted and was sent to [facility] for emergency treatment. I believe initially the plan was for surgical myocardial revascularization as well as surgical aortic valve replacement but because of his extremis he was brought to the operating room and underwent transcatheter aortic valve replacement followed by complex PCI of the left main and LAD performed by the engineering project designer. During the hospitalization he also underwent PCI with stenting of a high-grade mid right coronary lesion. Following all of that he did recover satisfactorily he was continues to be found to have a relatively severe ischemic cardiomyopathy and he is on aggressive guideline directed medical therapy for this. Until the recent attempt to discontinue his furosemide he has been doing well. His electrocardiogram shows sinus rhythm with atrial sensing and ventricular pacing and his troponin levels are negative for evidence of acute myocardial injury. Review of Systems Constitutional: Constitutional: Reports no additional constitutional complaints Eyes: Eyes: Reports no additional eye complaints EN
--- NOTE | 2024-04-03 17:06 | PM.DS ---
DS: Admitting Diagnosis Discharge Date 04/03/2024 Admitting Diagnosis SOB DS: Summary Hospital Course Hospital Course: Patient is a 63-year-old male, past medical history of CAD, who presents to the ED with report of shortness of breath. Patient reports he was in the cardiology office today having an external echocardiogram when he suddenly developed severe shortness of breath. Cardiology consulted who reported :63-year-old man with coronary heart disease, valvular heart disease who is under the care of my partner, Dr. Sandoval. The patient was admitted to the hospital last evening with abrupt severe shortness of breath which prompted him to be sent from the office to the emergency room and then he was admitted to the hospital. He was treated with intravenous furosemide, noninvasive ventilator for a short time last evening he is feeling much better and has no complaints at this time. The patient's not reporting any symptoms of chest pain pressure or heaviness he denies any orthopnea or PND he has noticed recently he has been accumulating some lower extremity edema. He had been on furosemide 40 mg daily for his ischemic LV dysfunction. Recently there were attempts made to wean and discontinue furosemide and after doing that he has noticed the accumulating edema in yesterday evening he became severely short of breath in the office when he was having an echocardiogram done. The patient has a history of ischemic heart disease with percutaneous revascularization procedures in 2017 and 2018. He is a had known to have left ventricular systolic dysfunction and had a RABIES INSPECTOR device implanted in 2018 and has been followed in our office. He then developed severe aortic valve stenosis which are resulted in him becoming severely unstable in the fall of 2022. He was hospitalized here at [place] and was brought to the bean sprout laborer and found to have a critical left main coronary stenosis as well. He became very unstable after that had a balloon pump implanted and was sent to [facility] for emergency treatment. I believe initially the plan was for surgical myocardial revascularization as well as surgical aortic valve replacement but because of his extremis he was brought to the operating room and underwent transcatheter aortic valve replacement followed by complex PCI of the left main and LAD performed by the valve repairer reclamation. During the hospitalization he also underwent PCI with stenting of a high-grade mid right coronary lesion. Following all of that he did recover satisfactorily he was continues to be found to have a relatively severe ischemic cardiomyopathy and he is on aggressive guideline directed medical therapy for this. Until the recent attempt to discontinue his furosemide he has been doing well. His electrocardiogram shows sinus rhythm with atrial sensing and ventricular pacing and his troponin levels are negative for evidence of acute myocardial injury.He is already on aggressive and very appropriate guideline directed medical therapy for his low ejection fraction there are no additions or adjustments to be made at this time. He appears to be stable enough for discharge at this time he should continue his furosemide at the previous dosage of 40 mg daily and there should not be any attempts made to wean it in the foreseeable future. Status at Discharge Cognitive/behavioral status at discharge: Stable Time Spent with Patient Time attestation: Total time spent providing and/or coordinating discharge services:45 mins Exam Narrative: GENERAL: Ill-appearing, well-nourished, and in moderate distress. HEAD: Normocephalic, atraumatic. ENT: Mucous membranes moist. NECK: Supple. CHEST: Diminished bilaterally with wheezing. No respiratory distress. HEART: Regular rate and rhythm. Normal peripheral pulses. ABDOMEN: Soft, nontender, nondistended. EXTREMITIES: Normal range of motion. No edema. SKIN: Warm, dry, no rash. NEURO: N Alert and
== END 2024-04-03 17:30 | disposition home or self-care (01) ==
LOC: ANHED 16:58 → ANHIMU 20:41
PROVIDERS: Emergency Medicine; Admitting Provider Internal Medicine; Emergency Provider Emergency Medicine; PCP Family Medicine Sports Medicine; Visit Provider General Practice
DX: I11.0 Hypertensive heart disease with heart failure (principal); I50.9 Heart failure, unspecified; J44.1 Chronic obstructive pulmonary disease with (acute) exacerbation; R07.9 Chest pain, unspecified; I25.10 Atherosclerotic heart disease of native coronary artery without angina pectoris; M54.9 Dorsalgia, unspecified; G89.29 Other chronic pain; E78.00 Pure hypercholesterolemia, unspecified; D64.9 Anemia, unspecified; I42.9 Cardiomyopathy, unspecified; J43.9 Emphysema, unspecified; K21.9 Gastro-esophageal reflux disease without esophagitis; F17.210 Nicotine dependence, cigarettes, uncomplicated; Z95.5 Presence of coronary angioplasty implant and graft; Z95.810 Presence of automatic (implantable) cardiac defibrillator; Z95.2 Presence of prosthetic heart valve; Z79.82 Long term (current) use of aspirin
CPT/HCPCS: 36415; 36600; 71045; 80053; 82805; 83690; 83880; 84484; 85018; 85025; 85027; 85055; 85610; 85730; 93005; 94640; 96374; 99285; A9270; G0378; J1940

== ENCOUNTER 2024-05-21 16:35 | Observation (INO) | payer MEDICARE, BC, SELFPAY ==
[2024-05-21] VITALS (26 sets, daily range): BP systolic 118–160; BP diastolic 70–104; PULSE 80–170; RESP 16–25; TEMP 36.6; O2SAT 86–100; BMI 28.2
--- NOTE | ~2024-05-21 | XR_ITS ---
EXAMINATION: XR chest 1V portable Exam Date/Time: 05/21/2024 17:50 FORESTRY AID TECHNICIAN HISTORY: SOB Comparison: 04/02/2024. RESULT: Lines, tubes, and devices: Left chest pacer/AICD with intact leads. Cardiac valve replacement. Right midlung stable line. Lungs and pleura: Clear. Cardiomediastinal silhouette: Stable. Other: No acute osseous or upper abdominal finding. IMPRESSION: No acute cardiopulmonary process. Reviewed, dictated and finalized at location K. STRY AID TECHNICIAN
--- NOTE | ~2024-05-21 | CT_ITS ---
CTA chest PE protocol Ordering provider: Evans Coyle History: 63 years Male with . +DDimer, sob . Comparison: None. Technique: CT angiogram chest was performed following timed intravenous injection of contrast. Thin s lice axial images and reformatted coronal images were obtained. Three dimensional reformatted images of the chest were also obtained using a [employer] workstation. . Automated exposure control and iterati ve reconstruction technique were employed. The dose-length product was 430.16 mGy-cm. 100 mL Omnipaqu e 350 was given IV. Findings: PULMONARY ARTERIES: No pulmonary embolus. VISUALIZED THORACIC INLET: Normal. MEDIASTINUM: Aorta/coronary arteries: Mild atheromatous disease. Aortic valve prosthesis is noted. Left-sided pace maker is noted. Heart/other: The heart is not enlarged. Lymph nodes: No mediastinal or hilar adenopathy. LUNGS: Nodule is seen in the right apical area which measures 1.6 x 0.5 centimeters. Scarring also seen in the right apical area. Dependent atelectatic changes. No pulmonary masses. No infiltrates or effusio ns. No pneumothorax. VISUALIZED UPPER ABDOMEN: the visualized upper abdomen is normal. MUSCULOSKELETAL: Soft tissues: The superficial soft tissues are normal. Bones: Age appropriate degenerative changes of the spine. IMPRESSION: 1. No pulmonary embolism. 2. No acute cardiopulmonary pathology. 3. Nodule in the right apical area. 3 mild low dose follow-up CT or PET/CT is advised. Reviewed, dictated and finalized at location A. ISION AGRICULTURE SPECIALIST
--- NOTE | ~2024-05-21 | US_ITS ---
EXAMINATION:US venous doppler LE BI INDICATION:Positive d-dimer TECHNIQUE: Multiple grayscale, color flow and Doppler images of the right and left lower extremity de ep venous systems were obtained and reviewed. COMPARISON:No prior studies for comparison. FINDINGS: The common femoral, superficial femoral and popliteal veins demonstrate normal respiratory variation, augmentation and compressibility. Color flow is also seen within the posterior tibial, pe roneal, greater saphenous and profunda veins. IMPRESSION: 1: No lower extremity deep venous thrombosis. Reviewed, dictated and finalized at location B. COUNTER WORKER
--- NOTE | 2024-05-21 16:38 | ECG_ITS ---
Test Date: 2024-05-21 16:51:10 Measurements Intervals Bishop Rate: 96 P: 41 CO: 112 QRS: -70 QRSD: 168 T: 89 QT: 402 QTc: 508 Interpretive Statements ATRIAL SENSE- ELECTRONIC VENTRICULAR PACEMAKER BASELINE ARTIFACT- I, II, III, AVR, AVL, AVF, V1-V6 NO FURTHER INTERPRETATION IS POSSIBLE ATYPICAL ECG Compared to ECG 04/02/2024 16:05:31 NO SIGNIFICANT CHANGE Electronically Signed On 05-21-2024 19:06:13 ENAMEL PULVERIZER by Danish Jacinto D.O.
--- NOTE | 2024-05-21 16:38 | ED.SOB ---
HPI - SOB/Dyspnea General Chief Complaint: Shortness of Breath/Dyspnea <Dana Zuleta PA-C - Last Filed: 05/21/24 16:42> Stated Complaint: sob <Dana Zuleta PA-C - Last Filed: 05/21/24 16:42> Time Seen by Provider: 05/21/24 16:39 <Dana Zuleta PA-C - Last Filed: 05/21/24 16:42> Focused HPI: Patient is a 63-year-old male, with past medical history of CAD, CHF, COPD, who presents the ED with report of shortness breath. Patient reports he suddenly became short of breath around 10-15 minutes ago. He was seen at his [facility] office earlier today. He had history of similar symptoms a couple of weeks ago and was seen in the ED here. Admitted for CHF exacerbation. Required BiPAP at that time. Patient does report having pain throughout his chest currently, as well as diaphoresis. Denies recent cough or cold symptoms, fevers. GENERAL: Well-appearing, well-nourished, and in no acute distress. HEAD: Normocephalic, atraumatic. CHEST: Clear to auscultation. ?No respiratory distress. HEART: Regular rate and rhythm.? NEURO: ?Alert and oriented x3. Patient screened in triage and initial orders placed.? ?Additional care and disposition to be based upon?diagnostic testing and treatment. <Dana Zuleta PA-C - Last Filed: 05/21/24 16:42> History of Present Illness HPI Narrative: Pt presents with SOB that got worse 15 minutes ago in pulmonolgist office. Pt has history of chf and flash edema and copd. Pt denies Cp or fever. <Edison Nash III, DO - Last Filed: 05/21/24 18:43> Related Data Home Medications: Home Medications Medication Instructions Recorded Confirmed [id number]-[id number] 200 mcg-vit K 100 1 cap PO DAILY 05/09/19 05/21/24 mcg-lycop 500 [id number] capsule (Daily Multivitamin) folic acid 0.8 mg capsule 0.8 mg PO DAILY 12/13/19 05/21/24 eplerenone 25 mg tablet 25 mg PO DAILY 06/18/20 05/21/24 coenzyme Q10 100 mg capsule 100 mg PO DAILY 01/28/22 05/21/24 (CoQ-10) turmeric root extract 500 mg 500 mg PO DAILY 01/28/22 05/21/24 capsule alprazolam 0.5 mg tablet 0.5 mg PO HS PRN insomnia/anxiety 04/05/23 05/21/24 amlodipine 5 mg tablet 5 mg PO DAILY 04/02/24 05/21/24 atorvastatin 80 mg tablet 80 mg PO QPM 04/02/24 05/21/24 carvedilol 25 mg tablet 25 mg PO BIDWM 04/02/24 05/21/24 furosemide 40 mg tablet 40 mg PO DAILY 04/02/24 05/21/24 ticagrelor 90 mg tablet (Brilinta) 90 mg PO Q12H 05/17/24 05/21/24 vit C 250 mg-vit E 90 mg-zinc 40 1 tablet PO BID 05/17/24 05/21/24 mg-copper 1 [id number] capsule (PreserVision AREDS-2) <Dana Zuleta PA-C - Last Filed: 05/21/24 16:42> Allergies/Adverse Reactions: Allergies Allergy/AdvReac Type Severity Reaction Status Date / Time No Known Allergies Allergy Verified 05/21/24 15:30 <Dana Zuleta PA-C - Last Filed: 05/21/24 16:42> Review of Systems Review of Systems: All systems reviewed & are unremarkable except as noted in HPI and below <Edison Nash III, DO - Last Filed: 05/21/24 18:43> [facility] Past Medical History Medical History: Medical History (Updated 05/21/24 @ 18:15 by Edison Nash III, DO) Adenomatous colon polyp Anemia Anxiety Arthritis Arthritis of hand, degenerative Bloating Cardiac disorder Pacemaker/defibrillator placed Cardiomyopathy Carpal tunnel syndrome Carpal tunnel syndrome of left wrist Carpal tunnel syndrome of right wrist Cataracts, bilateral Chronic back pain Congestive heart failure EF 60% on 11/08/2018 COPD (chronic obstructive pulmonary disease) Coronary artery disease 3 stents Diarrhea Early satiety Emphysema of lung GERD (gastroesophageal reflux disease) Hypercholesterolemia Hypertension Pneumonia 08/2017. Requiring intubation for 8 days Rectal bleeding Rectal polyp Respiratory abnormalities Benign nodule removed from right lung in 2012 Tenesmus (rectal) Trigger finger (acquired) <SOHEILA Whiteside Last Filed: 05/21/24 16:42> Surgical History Surgical History: Surgical History H/O cardiac catheterization History of orthopedic surgery Right knee ACL repair, 2 right knee scopes, and right rotator cuff repair Hx of tonsillectomy <SOHEILA Whiteside Last Filed: 05/21/24 16:42> Family History Family History: Family History Father Family history of Parkinson's disease Mother Family history of chronic obstructive pulmonary disease Family history of diabetes mellitus in first degree relative Family history of heart disease in male family member before age 55 Other Diabetes mellitus Family history of cardiovascular disease Hypertension <SOHEILA Whiteside Last Filed: 05/21/24 16:42> Social History Social History: Social History Smoking packs per day: 0.75 Smoking cigarettes per day: 15.0 Years smoked: 48 Smoking pack-years: 36.00 Smoking status: Current every day smoker Tobacco type: cigarettes Second hand tobacco smoke exposure: Yes Additional smoking assessment comments: CURRENTLY DOWN TO 0.5PK/DAY Alcohol intake: current Drinks per week: 21 Alcohol use details: WINE WITH DINNER, MIXED DRINK AT BEDSIDE Substance use: current Substance use type: does not use Last use: 04/01/21 Do You Feel Safe in your Home?: Yes Lack of Transportation: No Lack of Food: Never True Current Housing: I Have Housing Concerned About Future Housing: No Difficulty Paying Gas/Electric Bills: No Difficulty Paying for Meds: No Currently Unemployed: No Education: Associate Degree Difficulty w/ Childcare or Family Care: No Living arrangements: with family Additional living arrangements comments: patient is on disability Spiritual care concerns: No <SOHEILA Whiteside Last Filed: 05/21/24 16:42> Exam Const: General: ill appearing <Edison Nash III, DO - Last Filed: 05/21/24 18:43> Nutritional Appearance: thin <Edison Choco Nash III, DO - Last Filed: 05/21/24 18:43> Orientation/consciousness: patient oriented x3 <Edison Choco Nash III, DO - Last Filed: 05/21/24 18:43> Limitations: no limitations <Edison Choco Nash III, DO - Last Filed: 05/21/24 18:43> Chest: Chest palpation & inspection: normal inspection of the chest <Edison Choco Nash III, DO - Last Filed: 05/21/24 18:43> Resp: Effort & Inspection: labored and tachypneic <Edison Choco Nash III, DO - Last Filed: 05/21/24 18:43> Auscultation: crackles <Edison Choco Nash III, DO - Last Filed: 05/21/24 18:43> Cardio: Rate: tachycardic <Edison Choco Nash III, DO - Last Filed: 05/21/24 18:43> Rhythm: regular rhythm <Edison Choco Nash III, DO - Last Filed: 05/21/24 18:43> GI: GI Palp: Yes Soft to palpation and No Tenderness to palpation present (GI) <Edison Choco Nash III, DO - Last Filed: 05/21/24 18:43> Auscultation: normal bowel sounds <Edison Choco Nash III, DO - Last Filed: 05/21/24 18:43> Skin: General skin exam: normal color <Edison Choco Nash III, DO - Last Filed: 05/21/24 18:43> Wounds: no wounds <Edison Choco Nash III, DO - Last Filed: 05/21/24 18:43> Neuro: General: patient oriented x3, moves all extremities, no focal motor deficits and CN's II-XI intact bilaterally <Edison Choco Nash III, DO - Last Filed: 05/21/24 18:43> Speech: normal speech <Edison Choco Nash III, DO - Last Filed: 05/21/24 18:43> Extrem: General: edema <Edison Choco Nash III, DO - Last Filed: 05/21/24 18:43> Psych: Mental Status: mental status grossly normal <Edison Choco Nash III, DO - Last Filed: 05/21/24 18:43> Affect: normal affect <Edison Choco Nash III, DO - Last Filed: 05/21/24 18:43> Attitude: cooperative <Edison Choco Nash III, DO - Last Filed: 05/21/24 18:43> Course Vital Signs Vital signs: Vital Signs Pulse Oximetry 86 L 05/21/24 16:47 Oxygen Delivery Room Air 05/21/24 16:47 Temperature 97.8 F 05/21/24 16:49 Pulse Rate 85 05/21/24 18:09 Respiratory Rate 22 H 05/21/24 18:09 Blood Pressure 141/81 H 05/21/24 17:12 Pulse Oximetry 97 05/21/24 18:18 Oxygen Delivery BiPAP 05/21/24 18:18 Oxygen Flow Rate 4 05/21/24 16:48 Fraction of Inspired Oxygen 21 05/21/24 18:18 <MIKALA WhitesideC - Last Filed: 05/21/24 16:42> Vital Signs Pulse Oximetry 86 L 05/21/24 16:47 Oxygen Delivery Room Air 05/21/24 16:47 Temperature 97.8 F 05/21/24 16:49 Pulse Rate 85 05/21/24 18:09 Respiratory Rate 22 H 05/21/24 18:09 Blood Pressure 141/81 H 05/21/24 17:12 Pulse Oximetry 97 05/21/24 18:18 Oxygen Delivery BiPAP 05/21/24 18:18 Oxygen Flow Rate 4 05/21/24 16:48 Fraction of Inspired Oxygen 21 05/21/24 18:18 <Deison Choco Nash III, DO - Last Filed: 05/21/24 18:43> MDM - SOB/Dyspnea MDM Narrative Medical decision making narrative: Pt has had intermittent SOB for days but got more SOB about 15 minutes [employer]. Pt tachypneic and in moderate distress. will put on bipap and give lasix and neb. pt much btter after bipap, bnp elevated, cxr no pulmonary edema, looks more like copd. Discussed with juan m Oden will admit to obs IMU <Edison Choco Nash III, DO - Last Filed: 05/21/24 18:43> Differential Diagnosis Differential diagnosis: Likely acute exacerbation of chronic obstructive airways disease, congestive heart failure and community acquired pneumonia <Edison Choco Nash III, DO - Last Filed: 05/21/24 18:43> Lab Data Result diagrams: 05/21/24 16:52 05/21/24 16:52 <Dana Zuleta PA-C - Last Filed: 05/21/24 16:42> Labs: Lab Results 05/21/24 Range/Units 16:52 WBC 6.8 (4.5-10.0) K/mm3 RBC 3.44 L (4.6-6.20) M/mm3 Hgb 12.1 L (14.0-18.0) g/dL Hct 33.7 L (42.0-52.0) % MCV 98.0 (80-100) fl MCH 35.2 H (26-34) pg MCHC 35.9 (32-36) g/dl RDW 13.2 (11.5-14.5) % Plt Count 123 L (150-375) k/mm3 MPV 8.9 (7.4-10.4) fl Immature Gran % (Auto) 0.3 (0-0.5) % Neut % (Auto) 73.7 H (45.5-73.1) % Lymph % (Auto) 12.1 L (18.3-44.2) % Prairie % (Auto) 11.8 H (2.6-8.5) % Eos % (Auto) 1.2 (0-4.4) % Baso % (Auto) 0.9 (0.2-1.2) % Lymph # (Auto) 0.83 L (0.9-3.2) K/mm3 Prairie # (Auto) 0.8 H (0.1-0.6) K/mm3 Eos # (Auto) 0.1 (0-0.3) K/mm3 Baso # (Auto) 0.1 (0.0-0.1) K/mm3 Abs Immat Gran (auto) 0.02 (0.00-0.031) K/mm3 Absolute Neuts (auto) 5.0 (1.3-6.7) K/mm3 Absolute Nucleated RBC 0.000 (0.0-0.012) K/mm3 Nucleated RBC % 0.0 (0.0-0.2) % PT 14.0 (11.1-14.7) Seconds INR 1.0 APTT 26.6 (22.3-36.8) Seconds Methemoglobin 0.4 (0-1.5) %THb Sodium 129 L (137-145) mmol/L Potassium 4.4 (3.4-5.0) mmol/L Chloride 94 L (98-107) mmol/L Carbon Dioxide 23 (22-30) mmol/L Anion Gap 12 (4-12) mmol/L BUN 15 (9-20) mg/dL Creatinine 0.90 (0.7-1.3) mg/dL Estim Creat Clear Calc 83 ml/min Estimated GFR > 60 (59 - ) Glucose 147 H (65-110) mg/dL Calcium 9.3 (8.4-10.2) mg/dL Total Bilirubin 1.0 (0.2-1.3) mg/dL AST 73 H (17-59) U/L ALT 68 H (6-50) U/L Alkaline Phosphatase 150 H (38-126) U/L Troponin I < 0.012 (0.000-0.034) ng/mL NT-Pro-B Natriuret Pep 991 H (19.9-100) pg/mL Total Protein 8.0 (6.3-8.2) g/dL Albumin 5.1 (3.5-5.1) g/dL <Dana Zuleta PA-C - Last Filed: 05/21/24 16:42> Lab Results 05/21/24 Range/Units 16:52 WBC 6.8 (4.5-10.0) K/mm3 RBC 3.44 L (4.6-6.20) M/mm3 Hgb 12.1 L (14.0-18.0) g/dL Hct 33.7 L (42.0-52.0) % MCV 98.0 (80-100) fl MCH 35.2 H (26-34) pg MCHC 35.9 (32-36) g/dl RDW 13.2 (11.5-14.5) % Plt Count 123 L (150-375) k/mm3 MPV 8.9 (7.4-10.4) fl Immature Gran % (Auto) 0.3 (0-0.5) % Neut % (Auto) 73.7 H (45.5-73.1) % Lymph % (Auto) 12.1 L (18.3-44.2) % Prairie % (Auto) 11.8 H (2.6-8.5) % Eos % (Auto) 1.2 (0-4.4) % Baso % (Auto) 0.9 (0.2-1.2) % Lymph # (Auto) 0.83 L (0.9-3.2) K/mm3 [place]irie # (Auto) 0.8 H (0.1-0.6) K/mm3 Eos # (Auto) 0.1 (0-0.3) K/mm3 Baso # (Auto) 0.1 (0.0-0.1) K/mm3 Abs Immat Gran (auto) 0.02 (0.00-0.031) K/mm3 Absolute Neuts (auto) 5.0 (1.3-6.7) K/mm3 Absolute Nucleated RBC 0.000 (0.0-0.012) K/mm3 Nucleated RBC % 0.0 (0.0-0.2) % PT 14.0 (11.1-14.7) Seconds INR 1.0 APTT 26.6 (22.3-36.8) Seconds Methemoglobin 0.4 (0-1.5) %THb Sodium 129 L (137-145) mmol/L Potassium 4.4 (3.4-5.0) mmol/L Chloride 94 L (98-107) mmol/L Carbon Dioxide 23 (22-30) mmol/L Anion Gap 12 (4-12) mmol/L BUN 15 (9-20) mg/dL Creatinine 0.90 (0.7-1.3) mg/dL Estim Creat Clear Calc 83 ml/min Estimated GFR > 60 (59 - ) Glucose 147 H (65-110) mg/dL Calcium 9.3 (8.4-10.2) mg/dL Total Bilirubin 1.0 (0.2-1.3) mg/dL AST 73 H (17-59) U/L ALT 68 H (6-50) U/L Alkaline Phosphatase 150 H (38-126) U/L Troponin I < 0.012 (0.000-0.034) ng/mL NT-Pro-B Natriuret Pep 991 H (19.9-100) pg/mL Total Protein 8.0 (6.3-8.2) g/dL Albumin 5.1 (3.5-5.1) g/dL <Edison Nash III, DO - Last Filed: 05/21/24 18:43> ABG Data ABG results: 05/21/24 16:52 Puncture Site Right brachial ABG pH 7.417 ABG pCO2 34.5 L ABG pO2 92.4 ABG PO2/FiO2 Ratio 2.57 ABG HCO3 21.7 L ABG O2 Saturation 97.2 ABG O2 Content 17.0 ABG Base Excess -2.2 A-a Gradient 124.3 Oxyhemoglobin 94.4 Carboxyhemoglobin 2.1 H Reduced Hemoglobin 3.1 Total Hemoglobin 12.7 O2 Delivery Device Nasal cannula O2 Liters/Min 4.0 FiO2 36 <Dana Zuleta PA-C - Last Filed: 05/21/24 16:42> 05/21/24 16:52 Puncture Site Right brachial ABG pH 7.417 ABG pCO2 34.5 L ABG pO2 92.4 ABG PO2/FiO2 Ratio 2.57 ABG HCO3 21.7 L ABG O2 Saturation 97.2 ABG O2 Content 17.0 ABG Base Excess -2.2 A-a Gradient 124.3 Oxyhemoglobin 94.4 Carboxyhemoglobin 2.1 H Reduced Hemoglobin 3.1 Total Hemoglobin 12.7 O2 Delivery Device Nasal cannula O2 Liters/Min 4.0 FiO2 36 <Edison Nash III, DO - Last Filed: 05/21/24 18:43> Discharge Plan Discharge Clinical Impression: COPD (chronic obstructive pulmonary disease) <SOHEILA Whiteside Last Filed: 05/21/24 16:42> Patient Disposition: Still a Patient <SOHEILA Whiteside Last Filed: 05/21/24 16:42> Condition: Improved <SOHEILA Whiteside Last Filed: 05/21/24 16:42> Prescriptions: No Action tiotropium bromide [Spiriva Respimat] 1.25 mcg/actuation mist 0RF eplerenone 25 mg tablet 25 mg PO DAILY hydrocortisone 2.5 % cream with perineal applicator 1 applic RECTAL BID PRN (Reason: hemorrhoids) Qty: 30 0RF folic acid 0.8 mg Capsule 0.8 mg PO DAILY Brilinta 90 mg tablet 90 mg PO Q12H PreserVision AREDS-2 250-90-40-1 mg Capsule 1 tablet PO BID furosemide 40 mg tablet 40 mg PO DAILY carvedilol 25 mg tablet 25 mg PO BIDWM amlodipine 5 mg Tablet 5 mg PO DAILY atorvastatin 80 mg tablet 80 mg PO QPM Rx Instructions: TAKE 1 TABLET BY MOUTH DAILY Daily Multivitamin 200-100-500 mcg Capsule 1 cap PO DAILY coenzyme Q10 [CoQ-10] 100 mg Capsule 100 mg PO DAILY turmeric root extract 500 mg Capsule 500 mg PO DAILY alprazolam 0.5 mg tablet 0.5 mg PO HS PRN (Reason: insomnia/anxiety) Entresto 97-103 mg tablet 1 tablet PO BID Qty: 180 0RF Vascepa 1 gram capsule 2 g PO BID Qty: 180 0RF Rx Instructions: take after meals aspirin [Mohit Low Dose Aspirin] 81 mg tablet,delayed release (DR/EC) 81 mg PO DAILY Qty: 90 1RF nitroglycerin [Nitrostat] 0.4 mg tablet, sublingual 0.4 mg SUBLINGUAL Q5M PRN (Reason: Chest Pain) Qty: 20 0RF Patient Comments: patient has never taken hyoscyamine sulfate 0.375 mg tablet extended release 12 hr See Rx Instructions .ROUTE .COMPLEX Qty: 180 0RF Dose Instruction: TAKE 1 TABLET EVERY 12 HOURS Rx Instructions: TAKE 1 TABLET EVERY 12 HOURS <Dana Zuleta PA-C - Last Filed: 05/21/24 16:42> Follow-up/Referrals: Juan Antonio,Gene Malik MD [Primary Care Provider] - <Dana Zuleta PA-C - Last Filed: 05/21/24 16:42>
--- NOTE | 2024-05-21 16:50 | PC.NURSE ---
Pt. purse lip breathing and mildly agitated d/t SOB. 02 99% on 4L. MD Nash notified of pt. condition and potential for decompensation. Primary RN Mary also notified and RT at bedside.
[2024-05-21 16:57] LABS: Basophils Absolute Auto 0.1 K/mm3 (0.0-0.1); Basophils Percent Auto 0.9 % (0.2-1.2); Eosinophils Absolute Auto 0.1 K/mm3 (0-0.3); Eosinophils Percent Auto 1.2 % (0-4.4); Hematocrit 33.7 % (42.0-52.0); Hemoglobin 12.1 g/dL (14.0-18.0); Immature Granulocyte Absolute 0.02 K/mm3 (0.00-0.031); Immature Granulocyte Percent A 0.3 % (0-0.5); Lymphocytes Absolute Auto 0.83 K/mm3 (0.9-3.2); Lymphocytes Percent Auto 12.1 % (18.3-44.2); Mean Corpuscular HGB Conc 35.9 g/dl (32-36); Mean Corpuscular Hemoglobin 35.2 pg (26-34); Mean Platelet Volume 8.9 fl (7.4-10.4); Monocytes Absolute Auto 0.8 K/mm3 (0.1-0.6); Monocytes Percent Auto 11.8 % (2.6-8.5); Neutrophils Percent Auto 73.7 % (45.5-73.1); Platelet Count Result 123 k/mm3 (150-375); Red Blood Count 3.44 M/mm3 (4.6-6.20); Red Cell Distribution Width 13.2 % (11.5-14.5); White Blood Count 6.8 K/mm3 (4.5-10.0)
[2024-05-21 17:00] LABS: Alveolar/Arterial O2 Gradient 124.3 mmHg; Base Excess ABG -2.2 mEq/l (+/-2.0); Carboxyhemoglobin 2.1 % THb (0-2.0); Fractional Inspired Oxygen 36 %; HCO3 ABG 21.7 mEq/l (22.0-26.0); Methemoglobin ABG 0.4 %THb (0-1.5); Oxygen Saturation ABG 97.2 % (95.0-100.0); Oxyhemoglobin 94.4 % THb (90.0-100.0); PCO2 ABG 34.5 mmHg (35.0-45.0); PO2 ABG 92.4 mmHg (80.0-100.0); PO2 FiO2 Ratio Arterial Blood 2.57 %; Reduced Hemoglobin 3.1 %THb (0-5.0); Total Hemoglobin 12.7 g/dL (12.0-18.0); pH ABG 7.417 (7.350-7.450)
[2024-05-21 17:01] LABS: Device NASAL CANNULA; Site Drawn RIGHT BRACHIAL
[2024-05-21] MEDS: IPRATROPIUM 0.5 MG/ALBUTEROL SULFATE 2.5 MG AMPUL.NEB 3 ML INHALATION (17:05)
[2024-05-21] MEDS: methylPREDNISolone SOD SUCC 125 MG VIAL IV PUSH (17:09)
[2024-05-21] MEDS: FUROSEMIDE INJ 100 MG/10 ML VIAL 80 MG IV PUSH (17:09)
[2024-05-21 17:12] LABS: Alanine Aminotransferase 68 U/L (6-50); Albumin Level 5.1 g/dL (3.5-5.1); Alkaline Phosphatase 150 U/L (38-126); Anion Gap 12 mmol/L (4-12); Aspartate Amino Transferase 73 U/L (17-59); Blood Urea Nitrogen 15 mg/dL (9-20); Calcium 9.3 mg/dL (8.4-10.2); Carbon Dioxide 23 mmol/L (22-30); Chloride 94 mmol/L (98-107); Estimated CRCL calculation 83 ml/min; Estimated Glomerular Filt Rate > 60; Glucose 147 mg/dL (65-110); Partial Thromboplastin Time 26.6 Seconds (22.3-36.8); Potassium 4.4 mmol/L (3.4-5.0); Sodium 129 mmol/L (137-145)
[2024-05-21 17:23] LABS: NT Pro B Type Natriuretic Pept 991 pg/mL (19.9-100); Troponin I < 0.012 ng/mL (0.000-0.034)
--- NOTE | 2024-05-21 20:09 | PC.NURSE ---
pt taken off of bipap and put on O2 via NC
--- NOTE | 2024-05-21 20:28 | ADMGEN ---
This patient, Jcarlos Michaud, was admitted to IMU Room 204-01. Patient/family oriented to hospital policies and general routines including ID bracelet, bed and alarms, visiting hours, pain management, procedures, bathroom and other care routines, personal items, smoking policy, room service/diet, and visiting hours. Information on how to activate the Rapid Response Team has been discussed. Patient/Family are encouraged to report perceived risks to care and to ask questions if they do not understand what they are told or what they should do.
--- NOTE | 2024-05-21 20:55 | PC.NURSE ---
Patient states that he has not taken any of his evening meds and is requesting that they be restarted if appropriate. Patient specifically requests his xanax prior to HS so he is able to sleep. Admission report provided to STACEY Ferrari.
--- NOTE | 2024-05-21 23:25 | P.HP_ITS ---
H&P: HPI History of Present Illness Date/Time: 05/21/24 20:00 Chief Complaint: Shortness of breath. Narrative: This is a very pleasant 63-year-old male with coronary artery disease with revascularization procedures in 2016 and 2018, left ventricular systolic dysfunction with [employer] device implanted in 2017, severe aortic stenosis found to have critical left main coronary stenosis on cardiac catheterization in fall 2022 for which he was transferred to [facility] where he underwent transcatheter aortic valve replacement followed by complex PCI, hypertension, dyslipidemia, chronic obstructive pulmonary disease, ongoing tobacco, and daily alcohol use who presented to the emergency department for evaluation of sudden- onset shortness of breath. The patient provides the following history. He had an appointment with pulmonology today regarding a pulmonary nodule and seemed to be feeling okay at that time. When walking to his car after the appointment however he developed sudden-onset shortness of breath. He goes on to say that is not unusual for him to get short of breath in afternoon and remarks that he typically feels just fine in the mornings. He has a chronic smokers cough which is unchanged. He denies syncope, near syncope, fever, sweats, sinus congestion, sore throat, chest pain, pleuritic pain, palpitations, orthopnea, paroxysmal nocturnal dyspnea, nausea, vomiting, lower extremity edema, and calf pain. In the ED: SpO2 was 86% on room air. The remainder of his vital signs were stable. Labs are significant for a hemoglobin of 12.1, platelet 123, sodium 129, chloride 94, glucose 147, AST 73, ALT 68, alkaline phosphatase 150, troponin less than 0.012, proBNP 991. EKG showed a paced rhythm. On presentation to triage he was reportedly diaphoretic and in a tripod position with an SpO2 of 86% on room air. Due to work of breathing he was placed on a BiPAP and was given a nebulizer treatment with modest improvement. He is being admitted in this setting for further evaluation close monitoring. Review of Systems Review of Systems: 12 systems were reviewed and are negativ e except for as per HPI. [facility] Past Medical History Medical History (Updated 05/22/24 @ 00:28 by Sanjana Jones PA-C) Adenomatous colon polyp Anemia Anxiety Arthritis Cardiac disorder Pacemaker/defibrillator placed Chronic back pain Chronic obstructive pulmonary disease Congestive heart failure EF 60% on 11/08/2018 Coronary artery disease Daily consumption of alcohol Emphysema of lung Gastroesophageal reflux disease Hypercholesterolemia Hypertension Ischemic cardiomyopathy Pneumonia 08/2017. Requiring intubation for 8 days Rectal polyp Respiratory abnormalities Benign nodule removed from right lung in 2012 Surgical History Surgical History (Updated 05/22/24 @ 00:26 by Sanjana Jones PA-C) History of arthroscopy of right knee History of cardiac catheterization History of repair of ACL History of repair of anterior cruciate ligament of right knee History of repair of right rotator cuff History of tonsillectomy History of transcatheter aortic valve replacement (TAVR) Presence of combination internal cardiac defibrillator (ICD) and pacemaker Family History Family History Father Family history of Parkinson's disease Mother Family history of chronic obstructive pulmonary disease Family history of diabetes mellitus in first degree relative Family history of heart disease in male family member before age 55 Other Diabetes mellitus Family history of cardiovascular disease Hypertension Social History Social History (Updated 05/22/24 @ 00:15 by Sanjana Jones PA-C) Social History: Surrogate medical decision maker: Alisha Pereyramicki, spouse. Code status: Full code. Smoking packs per day: 0.5 Smoking cigarettes per day: 10.0 Years smoked: 48 Smoking pack-years: 24.00 Smoking status: Current every day smoker Second hand tobacco smoke exposure: Yes Alcohol intake: current Drinks per week: 21 Alcohol use details: wine with dinner admixed drink at bedtime. Substance use type: does not use Last use: 04/01/21 Do You Feel Safe in your Home?: Yes Lack of Transportation: No Lack of Food: Never True Current Housing: I Have Housing Concerned About Future Housing: No Difficulty Paying Gas/Electric Bills: No Difficulty Paying for Meds: No Currently Unemployed: No Education: Associate Degree Difficulty w/ Childcare or Family Care: No Living arrangements: with family Additional living arrangements comments: Lives with spouse in [place]. Additional occupation/education comments: Retired. Spiritual care concerns: No Meds Home Medications and Allergies Home Medications Medication Instructions Recorded Confirmed Type [id number] 200 mcg-vit K 100 1 cap PO DAILY 05/09/19 05/21/24 History mcg-lycop 500 [id number] capsule (Daily Multivitamin) folic acid 0.8 mg capsule 0.8 mg PO DAILY 12/13/19 05/21/24 History eplerenone 25 mg tablet 25 mg PO DAILY 06/18/20 05/21/24 History icosapent ethyl 1 gram capsule 2 g PO BID #180 caps 07/08/20 05/21/24 Rx (Vascepa) sacubitril 97 mg-valsartan 103 mg 1 tablet PO BID #180 tabs 07/08/20 05/21/24 Rx tablet (Entresto) aspirin 81 mg tablet,delayed 81 mg PO DAILY #90 tabs 08/24/21 05/21/24 Rx release (Mohit Low Dose Aspirin) nitroglycerin 0.4 mg sublingual 0.4 mg sublingual Q5M PRN Chest 08/24/21 05/21/24 Rx tablet (Nitrostat) Pain #20 tabs coenzyme Q10 100 mg capsule 100 mg PO DAILY 01/28/22 05/21/24 History (CoQ-10) turmeric root extract 500 mg 500 mg PO DAILY 01/28/22 05/21/24 History capsule alprazolam 0.5 mg tablet 0.5 mg PO HS PRN insomnia/anxiety 04/05/23 05/21/24 History hydrocortisone 2.5 % topical cream 1 applic RECTAL BID PRN 02/28/24 05/21/24 Rx with perineal applicator hemorrhoids #30 grams amlodipine 5 mg tablet 5 mg PO DAILY 04/02/24 05/21/24 History atorvastatin 80 mg tablet 80 mg PO QPM 04/02/24 05/21/24 History carvedilol 25 mg tablet 25 mg PO BIDWM 04/02/24 05/21/24 History furosemide 40 mg tablet 20 mg PO BID 04/02/24 05/21/24 History ticagrelor 90 mg tablet (Brilinta) 90 mg PO Q12H 05/17/24 05/21/24 History vit C 250 mg-vit E 90 mg-zinc 40 1 tablet PO BID 05/17/24 05/21/24 History mg-copper 1 mf-nbnddq-obnbha capsule (PreserVision AREDS-2) hyoscyamine sulfate 0.375 mg 0.375 mg PO Q12H 05/21/24 05/21/24 History tablet,extended release,12 hr tiotropium bromide 1.25 1.25 mcg/actuation Mist#1 Samples 05/21/24 05/21/24 Sample mcg/actuation mist for inhalation (Spiriva Respimat) Allergies Allergy/AdvReac Type Severity Reaction Status Date / Time No Known Allergies Allergy Verified 05/21/24 19:09 Vital Signs Vital Signs - 24 hr 05/21/24 16:47 05/21/24 16:48 05/21/24 16:49 Temperature 97.8 F Pulse Rate 100 Respiratory Rate 21 H Blood Pressure 160/104 H Pulse Oximetry 86 L 96 96 Oxygen Delivery Room Air Nasal Cannula Oxygen Flow Rate 4 Fraction of Inspired Oxygen 05/21/24 16:53 05/21/24 17:05 05/21/24 17:12 Temperature Pulse Rate 96 88 88 Respiratory Rate 24 H 24 H Blood Pressure 141/81 H Pulse Oximetry 100 Oxygen Delivery Oxygen Flow Rate Fraction of Inspired Oxygen 05/21/24 17:13 05/21/24 17:13 05/21/24 17:12 Temperature Pulse Rate 88 90 Respiratory Rate 16 22 H Blood Pressure Pulse Oximetry 100 100 Oxygen Delivery BiPAP BiPAP Oxygen Flow Rate Fraction of Inspired Oxygen 30 05/21/24 17:27 05/21/24 18:16 05/21/24 18:09 Temperature Pulse Rate 85 Respiratory Rate 22 H Blood Pressure Pulse Oximetry 98 96 100 Oxygen Delivery BiPAP BiPAP BiPAP Oxygen Flow Rate Fraction of Inspired Oxygen 30 21 05/21/24 18:18 05/21/24 17:01 05/21/24 17:31 Temperature 97.9 F Pulse Rate 80 84 Respiratory Rate 18 18 Blood Pressure 141/81 H 118/75 Pulse Oximetry 97 100 100 Oxygen Delivery BiPAP Oxygen Flow Rate Fraction of Inspired Oxygen 21 05/21/24 18:01 05/21/24 18:31 05/21/24 19:01 Temperature Pulse Rate 109 H 86 88 Respiratory Rate 19 20 22 H Blood Pressure 127/70 138/72 140/80 Pulse Oximetry 100 94 97 Oxygen Delivery Oxygen Flow Rate Fraction of Inspired Oxygen 05/21/24 19:02 05/21/24 19:15 05/21/24 19:30 Temperature Pulse Rate 105 H 124 H 170 H Respiratory Rate 18 22 H 25 H Blood Pressure Pulse Oximetry 97 99 99 Oxygen Delivery Oxygen Flow Rate Fraction of Inspired Oxygen 05/21/24 19:31 05/21/24 19:45 05/21/24 20:17 Temperature Pulse Rate 117 H 128 H 128 H Respiratory Rate 20 20 20 Blood Pressure 134/73 134/71 134/71 Pulse Oximetry 99 99 99 Oxygen Delivery Oxygen Flow Rate Fraction of Inspired Oxygen 05/21/24 20:25 05/21/24 20:33 05/21/24 21:21 Temperature 97.8 F Pulse Rate 95 94 Respiratory Rate 20 Blood Pressure 155/78 H Pulse Oximetry 98 97 Oxygen Delivery Nasal Cannula Oxygen Flow Rate 2 Fraction of Inspired Oxygen 05/21/24 22:11 Temperature Pulse Rate 97 Respiratory Rate Blood Pressure Pulse Oximetry Oxygen Delivery Oxygen Flow Rate Fraction of Inspired Oxygen Exam Narrative: General: Mildly ill-appearing gentleman sitting up in bed on BiPAP in no acute distress. Weight: 86.6 kg. BMI: 20.2. HEENT: PERRL, EOMI. Sclera anicteric. Oral mucosa appears moist with the BiPAP. Neck: Supple. No jugular venous distention. No stridor. Respiratory: Tolerating BiPAP. He is able to speak freely through the mask. Lung sounds are may be a bit diminished but are otherwise clear to auscultation. He does not seem in any distress. No wheezing. Cardiovascular: Regular rate and rhythm with S1-S2. Systolic murmur at the upper sternal border. Gastrointestinal: Abdomen is soft, protuberant, nontender, and nondistended with positive bowel sounds. Skin: Warm and dry. No rash or lesions on limited exam. Extremities: No cyanosis, clubbing, or edema. Radial and pedal pulses intact. Neurological: Alert. Cranial nerves 2-12 are grossly intact. No gross focal deficits to casual conversation. Psychiatric: Pleasant and cooperative with normal mood and affect. Judgment and insight intact. H&P: Results Labs Labs: Short CBC 05/21/24 Range/Units 16:52 WBC 6.8 (4.5-10.0) K/mm3 Hgb 12.1 L (14.0-18.0) g/dL Hct 33.7 L (42.0-52.0) % Plt Count 123 L (150-375) k/mm3 BMP 05/21/24 16:52 Sodium 129 L Potassium 4.4 Chloride 94 L Carbon Dioxide 23 BUN 15 Creatinine 0.90 Glucose 147 H Calcium 9.3 Cardiac Enzymes 05/21/24 05/21/24 Range/Units 16:52 21:08 Troponin I < 0.012 0.020 D (0.000-0.034) ng/mL Liver Function 05/21/24 Range/Units 16:52 Total Bilirubin 1.0 (0.2-1.3) mg/dL AST 73 H (17-59) U/L ALT 68 H (6-50) U/L Alkaline Phosphatase 150 H (38-126) U/L Albumin 5.1 (3.5-5.1) g/dL Imaging Chest X-Ray 05/21/24 18:02 IMPRESSION: 1. No acute cardiopulmonary process. ABG ABG results: 05/21/24 16:52 Puncture Site Right brachial ABG pH 7.417 ABG pCO2 34.5 L ABG pO2 92.4 ABG PO2/FiO2 Ratio 2.57 ABG HCO3 21.7 L ABG O2 Saturation 97.2 ABG O2 Content 17.0 ABG Base Excess -2.2 A-a Gradient 124.3 Oxyhemoglobin 94.4 Carboxyhemoglobin 2.1 H Reduced Hemoglobin 3.1 Total Hemoglobin 12.7 O2 Delivery Device Nasal cannula O2 Liters/Min 4.0 FiO2 36 Assessment and Plan Assessment and plan (1) Acute respiratory failure with hypoxia: Code(s): J96.01 - Acute respiratory failure with hypoxia Status: Acute (2) Chronic obstructive pulmonary disease: Code(s): J44.9 - Chronic obstructive pulmonary disease, unspecified Status: Acute (3) Ischemic cardiomyopathy: Code(s): I25.5 - Ischemic cardiomyopathy Status: Acute (4) Coronary artery disease: Code(s): I25.10 - Atherosclerotic heart disease of [employer] [place] coronary artery without angina pectoris Status: Acute (5) Elevated LFTs: Code(s): R79.89 - Other specified abnormal findings of blood chemistry Status: Acute (6) Tobacco abuse: Code(s): Z72.0 - Tobacco use Status: Acute (7) Daily consumption of alcohol: Code(s): Z78.9 - Other specified health status Status: Acute Plan The patient presented to the emergency department for evaluation of sudden-onset shortness of breath as detailed in HPI. Labs, imaging, EKG, and all reports were personally reviewed. Etiology is not entirely clear. He had a similar presentation in March and was hospitalized for a few days. He does not look volume overloaded and does not have any evidence to suggest COPD exacerbation. There was no stridor on examination. Pulmonary embolism seems unlikely by his history. He is in no distress at this time and BiPAP has been removed. SpO2 is currently in the upper 90s on 2 L. LFTs are mildly elevated but his abdominal exam is benign. Vital signs were reviewed and they are stable. His home medications will be reviewed and resumed as appropriate. Findings and treatment plan were discussed with the patient. Questions were solicited and answered to satisfaction. The patient's medical management will be taken over by the hospitalist team in a.m. Quality VTE Prophylaxis VTE prophylaxis: pharmacologic ordered The patient has been admitted under observation status. Hospitalist MIPS Advance Care Plan I have confirmed that the patient's Advanced Care Plan is present, code status is documented, or surrogate decision maker is listed in patient medical record.: Yes Medication Reconciliation I have utilized all available resources to obtain, update and review the patients current medications (includes all prescriptions, OTC, herbals, cannabis, and nutritional supplements).: Yes
[2024-05-22] VITALS (22 sets, daily range): BP systolic 132–143; BP diastolic 63–76; PULSE 80–93; RESP 18–20; TEMP 36.6–36.9; O2SAT 92–98
[2024-05-22 01:02] LABS: Troponin I 0.019 ng/mL (0.000-0.034)
[2024-05-22] MEDS: ALPRAZolam (*CRX) 0.5 MG TABLET PO (01:11)
[2024-05-22] MEDS: IPRATROPIUM 0.5 MG/ALBUTEROL SULFATE 2.5 MG AMPUL.NEB 3 ML INHALATION ×3 (02:27→13:25)
[2024-05-22 05:41] LABS: Hematocrit 30.5 % (42.0-52.0); Hemoglobin 10.8 g/dL (14.0-18.0); Mean Corpuscular HGB Conc 35.4 g/dl (32-36); Mean Corpuscular Hemoglobin 34.4 pg (26-34); Mean Corpuscular Volume 97.1 fl (80-100); Mean Platelet Volume 9.2 fl (7.4-10.4); Platelet Count Result 106 k/mm3 (150-375); Red Blood Count 3.14 M/mm3 (4.6-6.20); Red Cell Distribution Width 12.9 % (11.5-14.5); White Blood Count 4.5 K/mm3 (4.5-10.0)
[2024-05-22 05:59] LABS: Alanine Aminotransferase 54 U/L (6-50); Albumin Level 4.4 g/dL (3.5-5.1); Alkaline Phosphatase 107 U/L (38-126); Anion Gap 9 mmol/L (4-12); Aspartate Amino Transferase 46 U/L (17-59); Bilirubin,Total 0.9 mg/dL (0.2-1.3); Blood Urea Nitrogen 22 mg/dL (9-20); Calcium 8.7 mg/dL (8.4-10.2); Carbon Dioxide 25 mmol/L (22-30); Chloride 93 mmol/L (98-107); Estimated CRCL calculation 66 ml/min; Estimated Glomerular Filt Rate > 60; Glucose 185 mg/dL (65-110); Magnesium 1.5 mg/dL (1.6-2.3); Sodium 127 mmol/L (137-145)
[2024-05-22] MEDS: SACUBITRIL/VALSARTAN 97-103 MG TABLET 1 TAB PO (09:13)
[2024-05-22] MEDS: HYOSCYAMINE SULFATE 0.375 MG TAB.ER.12H PO (09:13)
[2024-05-22] MEDS: FOLIC ACID 0.4 MG TABLET 0.8 MG PO (09:13)
[2024-05-22] MEDS: OMEGA 3 POLYUNSAT FATTY ACIDS 1 GM CAP 2 GM PO ×2 (09:13→17:09)
[2024-05-22] MEDS: THERAPEUTIC MULTIVITAMINS/MINERALS TAB (*BKC) 1 TABLET PO (09:13)
[2024-05-22] MEDS: ASPIRIN 81 MG ENTERIC TABLET PO (09:14)
[2024-05-22] MEDS: amLODIPine BESYLATE 5 MG TABLET PO (09:14)
[2024-05-22] MEDS: carvediloL 25 MG TABLET PO (09:14)
[2024-05-22] MEDS: OPTI-GEN TAB 1 TABLET PO ×2 (09:14→17:08)
[2024-05-22] MEDS: FUROSEMIDE 20 MG TABLET PO ×2 (09:14→17:09)
[2024-05-22] MEDS: TICAGRELOR 90 MG TABLET PO (09:15)
[2024-05-22] MEDS: MAGNESIUM SULF 2 GM/WATER 50ML 2 GM/50 ML BAG IVPB (09:18)
--- NOTE | 2024-05-22 13:08 | P.PNIM_ITS ---
Progress Note: A&P Assessment and Plan (1) Acute respiratory failure with hypoxia: Code(s): J96.01 - Acute respiratory failure with hypoxia Status: Acute (2) Chronic obstructive pulmonary disease: Code(s): J44.9 - Chronic obstructive pulmonary disease, unspecified Status: Acute (3) Ischemic cardiomyopathy: Code(s): I25.5 - Ischemic cardiomyopathy Status: Acute (4) Coronary artery disease: Code(s): I25.10 - Atherosclerotic heart disease of [place] coronary artery without angina pectoris Status: Acute (5) Elevated LFTs: Code(s): R79.89 - Other specified abnormal findings of blood chemistry Status: Acute (6) Tobacco abuse: Code(s): Z72.0 - Tobacco use Status: Acute (7) Daily consumption of alcohol: Code(s): Z78.9 - Other specified health status Status: Acute Plan The patient presented to the emergency department for evaluation of sudden-onset shortness of breath as detailed in HPI. Labs, imaging, EKG, and all reports were personally reviewed. Etiology is not entirely clear. He had a similar presentation in March and was hospitalized for a few days. He does not look volume overloaded and does not have any evidence to suggest COPD exacerbation. There was no stridor on examination. Pulmonary embolism seems unlikely by his history. He is in no distress at this time and BiPAP has been removed. SpO2 is c urrently in the upper 90s on 2 L. LFTs are mildly elevated but his abdominal exam is benign. Vital signs were reviewed and they are stable. His home medications will be reviewed and resumed as appropriate. Findings and treatment plan were discussed with the patient. Questions were solicited and answered to satisfaction. The patient's medical management will be taken over by the hospitalist team in a.m. Subjective Date/time seen: 05/22/24 13:08 Interval history: 63yo male with CAD, seveer s/p TAVR, HTN and COPD here for shortness of breath. Exam Narrative: AF 98.0 143/76 88 20 98% ra Gen - NARD Chest - CTA bilaterally, nml RR CV - RRR S1/S2 Abd - Soft, NT/ND, Positive BS Ext - No pedal edema Neuro - Alert and oriented. Nonfocal exam. Psych - Nml mood and affect Skin - Warm and dry Objective Data Vital Signs Vital Signs: Vital Signs - 24 hr 05/21/24 16:47 05/21/24 16:48 05/21/24 16:49 Temperature 97.8 F Pulse Rate 100 Respiratory Rate 21 H Blood Pressure 160/104 H Pulse Oximetry 86 L 96 96 Oxygen Delivery Room Air Nasal Cannula Oxygen Flow Rate 4 Fraction of Inspired Oxygen 05/21/24 16:53 05/21/24 17:05 05/21/24 17:12 Temperature Pulse Rate 96 88 88 Respiratory Rate 24 H 24 H Blood Pressure 141/81 H Pulse Oximetry 100 Oxygen Delivery Oxygen Flow Rate Fraction of Inspired Oxygen 05/21/24 17:13 05/21/24 17:13 05/21/24 17:12 Temperature Pulse Rate 88 90 Respiratory Rate 16 22 H Blood Pressure Pulse Oximetry 100 100 Oxygen Delivery BiPAP BiPAP Oxygen Flow Rate Fraction of Inspired Oxygen 30 05/21/24 17:27 05/21/24 18:16 05/21/24 18:09 Temperature Pulse Rate 85 Respiratory Rate 22 H Blood Pressure Pulse Oximetry 98 96 100 Oxygen Delivery BiPAP BiPAP BiPAP Oxygen Flow Rate Fraction of Inspired Oxygen 30 21 05/21/24 18:18 05/21/24 17:01 05/21/24 17:31 Temperature 97.9 F Pulse Rate 80 84 Respiratory Rate 18 18 Blood Pressure 141/81 H 118/75 Pulse Oximetry 97 100 100 Oxygen Delivery BiPAP Oxygen Flow Rate Fraction of Inspired Oxygen 21 05/21/24 18:01 05/21/24 18:31 05/21/24 19:01 Temperature Pulse Rate 109 H 86 88 Respiratory Rate 19 20 22 H Blood Pressure 127/70 138/72 140/80 Pulse Oximetry 100 94 97 Oxygen Delivery Oxygen Flow Rate Fraction of Inspired Oxygen 05/21/24 19:02 05/21/24 19:15 05/21/24 19:30 Temperature Pulse Rate 105 H 124 H 170 H Respiratory Rate 18 22 H 25 H Blood Pressure Pulse Oximetry 97 99 99 Oxygen Delivery Oxygen Flow Rate Fraction of Inspired Oxygen 05/21/24 19:31 05/21/24 19:45 05/21/24 20:17 Temperature Pulse Rate 117 H 128 H 128 H Respiratory Rate 20 20 20 Blood Pressure 134/73 134/71 134/71 Pulse Oximetry 99 99 99 Oxygen Delivery Oxygen Flow Rate Fraction of Inspired Oxygen 05/21/24 20:25 05/21/24 20:33 05/21/24 21:21 Temperature 97.8 F Pulse Rate 95 94 Respiratory Rate 20 Blood Pressure 155/78 H Pulse Oximetry 98 97 Oxygen Delivery Nasal Cannula Oxygen Flow Rate 2 Fraction of Inspired Oxygen 05/21/24 22:11 05/22/24 00:18 05/22/24 00:00 Temperature 97.9 F Pulse Rate 97 91 91 Respiratory Rate 18 18 Blood Pressure 134/68 Pulse Oximetry 96 96 Oxygen Delivery Nasal Cannula Oxygen Flow Rate 2 Fraction of Inspired Oxygen 05/22/24 00:00 05/22/24 02:22 05/22/24 02:27 Temperature Pulse Rate 93 88 85 Respiratory Rate 20 Blood Pressure Pulse Oximetry Oxygen Delivery Oxygen Flow Rate Fraction of Inspired Oxygen 05/22/24 02:33 05/22/24 04:00 05/22/24 04:00 Temperature Pulse Rate 86 86 82 Respiratory Rate 20 20 Blood Pressure Pulse Oximetry 96 Oxygen Delivery Nasal Cannula Oxygen Flow Rate 2 Fraction of Inspired Oxygen 05/22/24 04:46 05/22/24 06:00 05/22/24 07:22 Temperature 98.2 F 98.5 F Pulse Rate 84 85 85 Respiratory Rate 18 20 Blood Pressure 137/73 134/72 Pulse Oximetry 97 95 Oxygen Delivery Oxygen Flow Rate Fraction of Inspired Oxygen 05/22/24 08:00 05/22/24 08:00 05/22/24 08:09 Temperature Pulse Rate 88 80 Respiratory Rate 20 20 Blood Pressure Pulse Oximetry 98 Oxygen Delivery Nasal Cannula Oxygen Flow Rate 2 Fraction of Inspired Oxygen 05/22/24 08:52 05/22/24 09:14 05/22/24 11:14 Temperature 98.0 F Pulse Rate 89 89 Respiratory Rate 20 Blood Pressure 143/76 H Pulse Oximetry 92 98 Oxygen Delivery Room Air Oxygen Flow Rate Fraction of Inspired Oxygen Intake/Output Intake/Output: Intake & Output 05/19/24 05/20/24 05/21/24 05/22/24 23:59 23:59 23:59 23:59 Intake Total 550 Output Total 700 Balance -150 Meds/Results Medications: Active Medications Generic Name Dose Route Start Last Admin Trade Name Freq PRN Reason Stop Dose Admin Albuterol/Ipratropium 3 ml 05/21/24 20:00 05/22/24 07:59 Ipratropium 0.5 Mg/Albuterol Sulfate 2.5 Mg Ampul.Neb 3 Ml INHALATION 3 ml Q6HRT TOMMY Administration Alprazolam 0.5 mg 05/22/24 00:29 05/22/24 01:11 Alprazolam (*Crx) 0.5 Mg Tablet PO 0.5 mg HS PRN Administration insomnia/anxiety Amlodipine Besylate 5 mg 05/22/24 09:00 05/22/24 09:14 Amlodipine Besylate 5 Mg Tablet PO 5 mg DAILY TOMMY Administration Aspirin 81 mg 05/22/24 09:00 05/22/24 09:14 Aspirin 81 Mg Enteric Tablet PO 81 mg DAILY TOMMY Administration Atorvastatin Calcium 80 mg 05/22/24 18:00 Atorvastatin 40 Mg Tablet PO QPM TOMMY Carvedilol 25 mg 05/22/24 09:00 05/22/24 09:14 Carvedilol 25 Mg Tablet PO 25 mg Q12HR TOMMY Administration Fish Oil 2 gm 05/22/24 09:00 05/22/24 09:13 [place] 3 Polyunsat Fatty Acids 1 Gm Cap PO 2 gm BID TOMMY Administration Folic Acid 0.8 mg 05/22/24 09:00 05/22/24 09:13 Folic Acid 0.4 Mg Tablet PO 0.8 mg QAM TOMMY Administration Furosemide 20 mg 05/22/24 09:00 05/22/24 09:14 Furosemide 20 Mg Tablet PO 20 mg BID TOMMY Administration Hydrocortisone 1 applic 05/22/24 00:50 Hydrocortisone 2.5% Cream 30 Gm Tube TOPICAL BID PRN hemorrhoids Hyoscyamine 0.375 mg 05/22/24 09:00 05/22/24 09:13 Hyoscyamine Sulfate 0.375 Mg Tab.Er.12h PO 0.375 mg Q12H TOMMY Administration Miscellaneous Information 0 each 05/22/24 00:01 Eplerenone = Nonformulary. Can Pt Use From Home? XX 06/21/24 00:00 [facility] Multivitamins/Calcium 1 tablet 05/22/24 09:00 05/22/24 09:13 Therapeutic Multivitamins/Minerals Tab (*Bkc) PO 1 tablet DAILY TOMMY Administration Multivitamins/Minerals 1 tablet 05/22/24 09:00 05/22/24 09:14 Opti-Gen Tab PO 1 tablet BID TOMMY Administration Non-Formulary Medication 100 mg 05/22/24 09:00 Coenzyme Q10 [Coq-10] PO 06/21/24 08:59 DAILY TOMMY Non-Formulary Medication 25 mg 05/22/24 09:00 Eplerenone PO 06/21/24 08:59 DAILY TOMMY Non-Formulary Medication 500 mg 05/22/24 09:00 Turmeric Root Extract PO 06/21/24 08:59 DAILY TOMMY Sacubitril/Valsartan 1 tab 05/22/24 09:00 05/22/24 09:13 Sacubitril/Valsartan 97-103 Mg Tablet PO 1 tab Q12HR TOMMY Administration Ticagrelor 90 mg 05/22/24 09:00 05/22/24 09:15 Ticagrelor 90 Mg Tablet PO 90 mg Q12H TOMMY Administration Radiology Results: ITS Impressions Chest X-Ray 05/21/24 18:02 IMPRESSION: No acute cardiopulmonary process. Labs Labs: Laboratory Results - last 24 hr 05/21/24 05/21/24 05/22/24 16:52 21:08 00:30 WBC 6.8 RBC 3.44 L Hgb 12.1 L Hct 33.7 L MCV 98.0 MCH 35.2 H MCHC 35.9 RDW 13.2 Plt Count 123 L MPV 8.9 Immature Gran % (Auto) 0.3 Neut % (Auto) 73.7 H Lymph % (Auto) 12.1 L [place] % (Auto) 11.8 H Eos % (Auto) 1.2 Baso % (Auto) 0.9 Lymph # (Auto) 0.83 L [place] # (Auto) 0.8 H Eos # (Auto) 0.1 Baso # (Auto) 0.1 Abs Immat Gran (auto) 0.02 Absolute Neuts (auto) 5.0 Absolute Nucleated RBC 0.000 Nucleated RBC % 0.0 PT 14.0 INR 1.0 APTT 26.6 D-Dimer Puncture Site Right brachial ABG pH 7.417 ABG pCO2 34.5 L ABG pO2 92.4 ABG PO2/FiO2 Ratio 2.57 ABG HCO3 21.7 L ABG O2 Saturation 97.2 ABG O2 Content 17.0 ABG Base Excess -2.2 A-a Gradient 124.3 Oxyhemoglobin 94.4 Carboxyhemoglobin 2.1 H Methemoglobin 0.4 Reduced Hemoglobin 3.1 Total Hemoglobin 12.7 O2 Delivery Device Nasal cannula O2 Liters/Min 4.0 FiO2 36 Sodium 129 L Potassium 4.4 Chloride 94 L Carbon Dioxide 23 Anion Gap 12 BUN 15 Creatinine 0.90 Estim Creat Clear Calc 83 Estimated GFR > 60 Glucose 147 H Calcium 9.3 Magnesium Total Bilirubin 1.0 AST 73 H ALT 68 H Alkaline Phosphatase 150 H Troponin I < 0.012 0.020 D 0.019 NT-Pro-B Natriuret Pep 991 H Total Protein 8.0 Albumin 5.1 05/22/24 05/22/24 04:45 08:30 WBC 4.5 RBC 3.14 L Hgb 10.8 L Hct 30.5 L MCV 97.1 MCH 34.4 H MCHC 35.4 RDW 12.9 Plt Count 106 L MPV 9.2 Immature Gran % (Auto) Neut % (Auto) Lymph % (Auto) [place] % (Auto) Eos % (Auto) Baso % (Auto) Lymph # (Auto) [place] # (Auto) Eos # (Auto) Baso # (Auto) Abs Immat Gran (auto) Absolute Neuts (auto) Absolute Nucleated RBC Nucleated RBC % PT INR APTT D-Dimer 1.00 H Puncture Site ABG pH ABG pCO2 ABG pO2 ABG PO2/FiO2 Ratio ABG HCO3 ABG O2 Saturation ABG O2 Content ABG Base Excess A-a Gradient Oxyhemoglobin Carboxyhemoglobin Methemoglobin Reduced Hemoglobin Total Hemoglobin O2 Delivery Device O2 Liters/Min FiO2 Sodium 127 L Potassium 4.0 Chloride 93 L Carbon Dioxide 25 Anion Gap 9 BUN 22 H Creatinine 1.00 Estim Creat Clear Calc 66 Estimated GFR > 60 Glucose 185 H Calcium 8.7 Magnesium 1.5 L Total Bilirubin 0.9 AST 46 ALT 54 H Alkaline Phosphatase 107 Troponin I NT-Pro-B Natriuret Pep Total Protein 7.0 Albumin 4.4
[2024-05-22] MEDS: ATORVASTATIN 40 MG TABLET 80 MG PO (17:08)
--- NOTE | 2024-05-22 18:11 | P.DS_ITS ---
DS: Admitting Diagnosis Discharge Date 05/22/24 Admitting Diagnosis Shortness of breath DS: Discharge Diagnosis Discharge Diagnosis (1) Acute respiratory failure with hypoxia: Code(s): J96.01 - Acute respiratory failure with hypoxia Status: Acute (2) Chronic obstructive pulmonary disease: Code(s): J44.9 - Chronic obstructive pulmonary disease, unspecified Status: Acute (3) Ischemic cardiomyopathy: Code(s): I25.5 - Ischemic cardiomyopathy Status: Acute (4) Coronary artery disease: Code(s): I25.10 - Atherosclerotic heart disease of [place] coronary artery without angina pectoris Status: Acute (5) Elevated LFTs: Code(s): R79.89 - Other specified abnormal findings of blood chemistry Status: Acute (6) Tobacco abuse: Code(s): Z72.0 - Tobacco use Status: Acute (7) Daily consumption of alcohol: Code(s): Z78.9 - Other specified health status Status: Acute DS: Summary Hospital Course Reason for hospitalization: 63yo male with CAD, s/p TAVR, HTN and COPD here for shortness of breath. Please see H&P for details. Hospital Course: The patient presented to the emergency department for evaluation of sudden-onset shortness of breath. He was 98% on admission but dropped to 86% in ED. EKG showing paced rhythm. CXR was clear. WBC was normal. Hgb 12 at at baseline. Platelet count was 123K and this appears to be chronic. ABG 7.42/35/92 on 4L. Sodium low at 129 but also more chronic. AST and ALT mildly elevated but improved on repeat. He was educated about cutting back or stopping alcohol use. Also he was educated about the benefits of smoking cessation. BNP 991 and lower than prior value. Troponin negative x3. He was given Lasix 80mg IV once, Soul- Medrol and Duoneb in the ED. His symptoms improved. He was weaned off oxygen. No wheezing by ED exam. Suspect either fludi overload or bronchospasm. His DDimer was positive but his CTA chest was negative for PE. Known right lung nodule noted and is being followed for this. Doppler was negative for DVT. He was up walkin gin the halls. He feels well and is requesting discharge. He did well and was able to be discharged home on 05/22/24 Status at Discharge Cognitive/behavioral status at discharge: stable Time Spent with Patient Time attestation: Total time spent providing and/or coordinating discharge services: 35 minutes Time spent: Greater than 30 minutes Exam Narrative: AF 98.0 143/76 88 20 98% ra Gen - NARD Chest - CTA bilaterally, nml RR CV - RRR S1/S2. Tele showing no acute dysrhythmias Abd - Soft, NT/ND, Positive BS Ext - No pedal edema Psych - Nml mood and affect Skin - Warm and dry DS: Data Data Completed and Pending Labs on day of discharge: Labs from last 24 hours 05/22/24 05/22/24 05/22/24 08:30 04:45 00:30 WBC 4.5 RBC 3.14 L Hgb 10.8 L Hct 30.5 L MCV 97.1 MCH 34.4 H MCHC 35.4 RDW 12.9 Plt Count 106 L MPV 9.2 D-Dimer 1.00 H Sodium 127 L Potassium 4.0 Chloride 93 L Carbon Dioxide 25 Anion Gap 9 BUN 22 H Creatinine 1.00 Estim Creat Clear Calc 66 Estimated GFR > 60 Glucose 185 H Calcium 8.7 Magnesium 1.5 L Total Bilirubin 0.9 AST 46 ALT 54 H Alkaline Phosphatase 107 Troponin I 0.019 Total Protein 7.0 Albumin 4.4 05/21/24 21:08 WBC RBC Hgb Hct MCV MCH MCHC RDW Plt Count MPV D-Dimer Sodium Potassium Chloride Carbon Dioxide Anion Gap BUN Creatinine Estim Creat Clear Calc Estimated GFR Glucose Calcium Magnesium Total Bilirubin AST ALT Alkaline Phosphatase Troponin I 0.020 D Total Protein Albumin Discharge Plan Discharge Attending physician on discharge: Evans Coyle Discharging Clinician: Evans Coyle Anticipated Discharge Date/Time: 05/22/24 18:26 Patient Disposition: Home, Self-Care Activity: as tolerated Diet: heart healthy Discharge Instructions: Stop all products that contain tobacco or nicotine. Stop or cut back your alcohol use Check blood pressure 1 to 2 times a day. Record and bring into your doctor for review. Call your doctor if your blood pressure is greater than 180/110. Take precautions to avoid falls. Rise slowly from a lying or sitting position. Pause before standing or walking. Check daily morning weights after voiding. Call your doctor if you gain more than 3 lb in 2 days or 5 lb in 1 week. Contact your doctor or call 911 and come to the Emergency Room if you have increasing shortness of breath or other worrisome symptoms. Avoid NSAIDs (ibuprofen, naproxen, Aleve). Tylenol is safe to take. Follow-up with your primary care provider in 1-2 weeks. Please call for appointment. Follow-up with your Pipe Changer in 2-4 weeks. Please call for an appointment. Thank you for using [facility] for your health care needs. Patient Instructions: Antibiotic Form, Ticagrelor (By mouth), Heart Failure (GEN), Pain Management (DC) Stand Alone Forms: General Discharge Information Follow-up/Referrals: Radu Sandoval MD [Physician] - Call for Appointment [facility] Malik MD [Primary Care Provider] - Call for Appointment Discharge Medications: New furosemide [Lasix] 20 mg tablet 20 mg PO MOWEFR Qty: 20 0RF Rx Instructions: Take at 2PM Continued tiotropium bromide [Spiriva Respimat] 1.25 mcg/actuation mist 2 puff inhalation DAILY 0RF eplerenone 25 mg tablet 25 mg PO DAILY hydrocortisone 2.5 % cream with perineal applicator 1 applic RECTAL BID PRN (Reason: hemorrhoids) Qty: 30 0RF folic acid 0.8 mg Capsule 0.8 mg PO DAILY Brilinta 90 mg tablet 90 mg PO Q12H PreserVision AREDS-2 250-90-40-1 mg Capsule 1 tablet PO BID carvedilol 25 mg tablet 25 mg PO BIDWM amlodipine 5 mg Tablet 5 mg PO DAILY atorvastatin 80 mg tablet 80 mg PO QPM hyoscyamine sulfate 0.375 mg tablet extended release 12 hr 0.375 mg PO Q12H Daily Multivitamin 200-100-500 mcg Capsule 1 cap PO DAILY coenzyme Q10 [CoQ-10] 100 mg Capsule 100 mg PO DAILY turmeric root extract 500 mg Capsule 500 mg PO DAILY alprazolam 0.5 mg tablet 0.5 mg PO HS PRN (Reason: insomnia/anxiety) Entresto 97-103 mg tablet 1 tablet PO BID Qty: 180 0RF Vascepa 1 gram capsule 2 g PO BID Qty: 180 0RF Rx Instructions: take after meals aspirin [Mohit Low Dose Aspirin] 81 mg tablet,delayed release (DR/EC) 81 mg PO DAILY Qty: 90 1RF nitroglycerin [Nitrostat] 0.4 mg tablet, sublingual 0.4 mg SUBLINGUAL Q5M PRN (Reason: Chest Pain) Qty: 20 0RF Patient Comments: patient has never taken Changed furosemide 40 mg tablet 40 mg PO QAM Qty: 30 0RF Date of admission: 05/21/24 18:16 Primary Care Provider: Juan Antonio,Gene Malik Admitting Provider: Velasquez Rodriguez Attending physician on admission: Velasquez Rodriguez Condition: Improved Hospitalist MIPS Heart Failure (Exclusion) Patient has history of Heart Transplant or Left Ventricular Assistive Device?: No IF YES, STOP HERE Heart Failure (Qualifier) Patient has current or prior documentation of LVEF less than or equal to 40%, or mod/servere depressed LVSF?: Yes IF NO, STOP HERE If Yes, Heart Failure (Qualifier) Patient was prescribed or already taking an Angiotensin-Converting Enzyme (JUAN) Inhibitor, or Antiotensin Receptor Andra (ARB): Yes Patient was prescribed or already taking bisoprolol, carvedilol, or sustained release metoprolol succinate: Yes
--- NOTE | 2024-05-22 18:57 | PC.NURSE ---
WC dc. iv and tele removed. dc instructions given to and patient. both parties verbalized understanding.
== END 2024-05-22 19:04 | disposition home or self-care (01) ==
LOC: ANHED 18:15 → ANHIMU 20:51
PROVIDERS: Physician Assistant; Admitting Provider General Practice; Emergency Provider Emergency Medicine; PCP Family Medicine Sports Medicine; Visit Provider Internal Medicine
DX: J96.01 Acute respiratory failure with hypoxia (principal); J43.9 Emphysema, unspecified; I25.5 Ischemic cardiomyopathy; I25.10 Atherosclerotic heart disease of native coronary artery without angina pectoris; F17.210 Nicotine dependence, cigarettes, uncomplicated; R79.89 Other specified abnormal findings of blood chemistry; I11.0 Hypertensive heart disease with heart failure; I50.9 Heart failure, unspecified; E78.00 Pure hypercholesterolemia, unspecified; I35.0 Nonrheumatic aortic (valve) stenosis; Z95.810 Presence of automatic (implantable) cardiac defibrillator; Z78.9 Other specified health status; Z95.5 Presence of coronary angioplasty implant and graft
CPT/HCPCS: 36415; 36600; 71045; 71275; 80053; 82375; 82805; 83050; 83735; 83880; 84484; 85018; 85025; 85027; 85380; 85610; 85730; 93005; 93970; 94640; 96374; 96375; 99285; A9270; G0378; J1940; J2919; J3475; Q9967